=== PATIENT | male | born 1965 | race African-American/Black ===

== ENCOUNTER 2016-11-14 09:06 | Inpatient (IN) | payer OTHER ==
[2016-11-14 09:42] VITALS: BMI 23.5
--- NOTE | 2016-11-14 18:10 | HP ---
CIWA Score - CIWA Score Nausea/Vomitin-Mild Nausea/No Vomiting Muscle Tremors: 4-Moderate,w/Arms Extend Anxiety: 4-Mod. Anxious/Guarded Agitation: 4-Moderately Restless Paroxysmal Sweats: 1-Minimal Palms Moist Orientation: 0-Oriented Tacttile Disturbances: 0-None Auditory Disturbances: 0-None Visual Disturbances: 0-None Headache: 1-Very Mild CIWA-Ar Total Score: 15 Admission ROS BHS - HPI Chief Complaint: WITHDRAWAL SX LAST DETOX 2015 [place] Allergies/Adverse Reactions: Allergies Allergy/AdvReac Type Severity Reaction Status Date / Time hydromorphone HCl Allergy Severe Swelling Verified 11/14/16 15:04 [From Dilaudid] sulfamethoxazole Allergy Severe unknown Verified 11/14/16 15:04 [From Bactrim] trimethoprim [From Bactrim] Allergy Severe unknown Verified 11/14/16 15:04 History of Present Illness: 51 YEARS OLD MALE WITH LONG HISTORY OF ALCOHOL NICOTINE DEPENDENCE HAS GERD, SEIZURE, HYPERTENSION AND BIPOLAR II IS ADMITTED TO DETOX Exam Limitations: No Limitations - Ebola screening Have you traveled outside of the country in the last 21 days: No Have you had contact with anyone from an Ebola affected area: No Have you been sick,other than usual withdrawal symptoms: No Do you have a fever: No - Review of Systems Constitutional: Chills, Changes in sleep, Weight Stable EENT: reports: No Symptoms Reported Respiratory: reports: No Symptoms reported Cardiac: reports: No Symptoms Reported GI: reports: Nausea, Poor Fluid Intake, Indigestion, Abdominal cramping : reports: No Symptoms Reported Musculoskeletal: reports: No Symptoms Reported Integumentary: reports: No Symptoms Reported Neuro: reports: Seizure (2015 ALCOHOL RELATED), Tremors Endocrine: reports: No Symptoms Reported Hematology: reports: No Symptoms Reported Psychiatric: reports: Judgement Intact, Orientated x3, Depressed Other Systems: Reviewed and Negative Patient History - Patient Medical History Hx Anemia: No Hx Asthma: No Hx Chronic Obstructive Pulmonary Disease (COPD): No Hx Cancer: No Hx Cardiac Disorders: No Hx Congestive Heart Failure: No Hx Hypertension: Yes Hx Hypercholesterolemia: No Hx Pacemaker: No HX Cerebrovascular Accident: No Hx Seizures: Yes (last 1 1/2 ago) Hx Dementia: No Hx Diabetes: No Hx Gastrointestinal Disorders: Yes Hx Liver Disease: No Hx Genitourinary Disorders: No Hx Sexually Transmitted Disorders: No Hx Renal Disease (ESRD): No Hx Thyroid Disease: No Hx Human Immunodeficiency Virus (HIV): No (negative) Hx Hepatitis C: No Hx Depression: No Hx Suicide Attempt: No Hx Bipolar Disorder: Yes Hx Schizophrenia: No - Patient Surgical History Past Surgical History: Yes Hx Neurologic Surgery: No Hx Cataract Extraction: No Hx Cardiac Surgery: No Hx Lung Surgery: No Hx Breast Surgery: No Hx Breast Biopsy: No Hx Abdominal Surgery: No Hx Appendectomy: No Hx Cholecystectomy: No Hx Genitourinary Surgery: No Hx Orthopedic Surgery: Yes (fx, left femur in 1984) Other Surgical History: fx rt leg Anesthesia Reaction: No - PPD History Previous Implant?: Yes Documented Results: Negative w/proof Implanted On Prior R Admission?: Yes Date: 09/22/15 Results: 0mm PPD to be Administered?: Yes - Smoking Cessation Smoking history: Current every day smoker Have you smoked in the past 12 months: Yes Aproximately how many cigarettes per day: 7 Cigars Per Day: 0 Hx Chewing Tobacco Use: No Initiated information on smoking cessation: Yes 'Breaking Loose' booklet given: 11/14/16 - Substance & Tx. History Hx Alcohol Use: Yes Hx Substance Use: No Substance Use Type: Alcohol Hx Substance Use Treatment: Yes (10/2015 DETOX) - Substances Abused Alcohol Route: Oral Frequency: Daily Amount used: yvonne(1 pint)/beer(80 Oz) Age of first use: 15 Date of Last Use: 11/14/16 Family Disease History - Family Disease History Family Disease History: Other: Father (alcoholic ), Mother (alcoholic decesased ) Admission Physical Exam S - Vital Signs Vital Signs: Vital Signs - 24 hr 11/14/16 11/14/16 09:40 17:22 Temperature 97 F L 97.0 F L Pulse Rate 112 H 70 Respiratory 20 18 Rate Blood Pressure 109/77 144/89 - Physical General Appearance: Yes: Appropriately Dressed, Mild Distress, Alcohol on Breath , Thin, Tremorous, Irritable, Sweating, Anxious HEENTM: Yes: Hearing grossly Normal, Normal ENT Inspection, Normocephalic, Normal Voice Respiratory: Yes: Chest Non-Tender, Lungs Clear, Normal Breath Sounds, No Respiratory Distress, No Accessory Muscle Use Neck: Yes: Supple, Trachea in good position Breast: Yes: Breasts Symetrical Cardiology: Yes: Regular Rhythm, Regular Rate, S1, S2 Abdominal: Yes: Non Tender, Soft Genitourinary: Yes: Within Normal Limits Back: Yes: Normal Inspection Musculoskeletal: Yes: full range of Motion, Gait Steady, Back pain Extremities: Yes: Normal Inspection, Normal Range of Motion, Non-Tender, Tremors Neurological: Yes: Fully Oriented, Alert, Motor Strength 5/5, Normal Response, Depressed Affect Integumentary: Yes: Warm Lymphatic: Yes: Within Normal Limits - Diagnostic (1) Alcohol dependence with uncomplicated withdrawal Current Visit: Yes Status: Acute (2) GERD (gastroesophageal reflux disease) Current Visit: Yes Status: Chronic Qualifiers: Esophagitis presence: without esophagitis Qualified Code(s): K21.9 - Gastro-esophageal reflux disease without esophagitis (3) Hypertension Current Visit: Yes Status: Chronic Qualifiers: Hypertension type: essential hypertension Qualified Code(s): I10 - Essential (primary) hypertension (4) Nicotine dependence Current Visit: Yes Status: Acute Qualifiers: Nicotine product type: cigarettes Substance use status: in withdrawal Qualified Code(s): F17.213 - Nicotine dependence, cigarettes, with withdrawal (5) Bipolar II disorder Current Visit: Yes Status: Suspected (6) Seizure disorder Current Visit: No Status: Chronic Comment: pt is on keppra PATIENT REPORTS AVERAGE 3-4 SEIZURE PER MONTH X 3 MONTHS, LAST NEUROLOGY VISITED "LONG TIME AGO", INCREASE HS KEPPRA TO 1000 MG, HEALTH TEACHING ON COMPLIANCE WITH NEURONTIN 300 MG TID Cleared for Admission [facility] - Detox or Rehab [facility] Level of Care: Medically Managed Detox Regimen/Protocol: Librium S Breath Alcohol Content Breath Alcohol Content: 0.037 Urine Drug Screen - Results Drug Screen Negative: Yes
[2016-11-14] MEDS ORDERED: hydrOXYzine PAMOATE 50 MG CAPSULE (FP) PO PRN (18:15)
[2016-11-14] MEDS ORDERED: LOPERAMIDE HCL 2 MG CAPSULE PO PRN (18:15)
[2016-11-14] MEDS ORDERED: MAGNESIUM HYDROX 2400MG/30ML ORAL SUSPENSION 30 ML CUP PO PRN (18:15)
[2016-11-14] MEDS ORDERED: MENTHOL/PHENOL 1 EACH UD MM PRN (18:15)
[2016-11-14] MEDS ORDERED: MAGNESIUM CITRATE 300 ML BOTTLE PO PRN (18:15)
[2016-11-14] MEDS ORDERED: P-EPHED 60MG/TRIPROLIDI 2.5MG TABLET PO PRN (18:15)
[2016-11-14] MEDS ORDERED: guaiFENesin/D-METHORPHAN HB 10 ML UNIT-DOSE CUPS PO PRN (18:15)
[2016-11-14] MEDS ORDERED: ACETAMINOPHEN 325 MG TABLET (FP) PO PRN (18:15)
[2016-11-14] MEDS ORDERED: NICOTINE 14 MG/24 HOURS TOPICAL PATCH TD PRN (18:15)
[2016-11-14] MEDS ORDERED: chlordiazePOXIDE HCL 25 MG CAPSULE PO PRN (18:15)
[2016-11-14] MEDS ORDERED: diphenhydrAMINE HCL 50 MG CAPSULE PO PRN (18:15)
[2016-11-14] MEDS ORDERED: NICOTINE POLACRILEX 2 MG GUM BC PRN (18:15)
[2016-11-14] MEDS ORDERED: MAG HYDROX/AL HYDROX/SIMETH 30 ML UNIT-DOSE CUP PO PRN (18:15)
[2016-11-14] MEDS ORDERED: chlordiazePOXIDE HCL 25 MG CAPSULE PO ONE (19:00)
[2016-11-14] MEDS: THIAMINE HCL 100 MG TABLET (FP) PO SCH (22:05)
[2016-11-14] MEDS: RANITIDINE HCL 150 MG TABLET (FP) PO SCH (22:05)
[2016-11-14] MEDS: chlordiazePOXIDE HCL 25 MG CAPSULE PO SCH (22:05)
[2016-11-14] MEDS: GABAPENTIN 300 MG CAPSULE (FP) PO SCH (22:05)
[2016-11-14] MEDS: levETIRAcetam 500 MG TABLET (FP) PO SCH (22:05)
[2016-11-15] MEDS: chlordiazePOXIDE HCL 25 MG CAPSULE PO SCH ×4 (05:39→22:23)
[2016-11-15] MEDS: GABAPENTIN 300 MG CAPSULE (FP) PO SCH ×3 (05:39→22:23)
--- NOTE | 2016-11-15 09:31 | EKG ---
Test Reason : Blood Pressure : / mmHG Vent. Rate : 070 BPM Atrial Rate : 070 BPM P-R Int : 190 ms QRS Dur : 078 ms QT Int : 380 ms P-R-T Axes : 048 031 034 degrees QTc Int : 410 ms NORMAL SINUS RHYTHM SEPTAL INFARCT , AGE UNDETERMINED ABNORMAL ECG WHEN COMPARED WITH ECG OF 15-AUG-2014 19:48, NO SIGNIFICANT CHANGE WAS FOUND Confirmed by JALEN LAFLEUR MD ([id number]) on 11/15/2016 9:30:44 AM Referred By: Confirmed By:JALEN LAFLEUR MD
[2016-11-15 10:00] LABS: MCH 28.8 pg (25.7-33.7); MCHC 35.1 g/dl (32.0-35.9); MEAN CELL VOLUME 82.1 fl (80-96); MEAN PLT VOLUME 8.1 fl (7.5-11.1); PLATELET COUNT 101 K/MM3 (134-434); RDW 13.9 % (11.9-15.9)
[2016-11-15 10:23] LABS: ALBUMIN 3.5 g/dl (3.4-5.0); ALK PHOS 83 U/L (45-117); ANION GAP 9 (8-16); BILIRUBIN,TOTAL 0.4 mg/dL (0.2-1.0); CALCIUM 9.3 mg/dL (8.5-10.1); CO2 27 mmol/L (21-32); CREATININE 1.1 mg/dL (0.7-1.3); GLUCOSE,RANDOM 122 mg/dL (74-106); SGOT/AST 99 U/L (15-37); SGPT/ALT 77 U/L (12-78); TOT PROT 6.7 g/dl (6.4-8.2)
[2016-11-15] MEDS: levETIRAcetam 500 MG TABLET (FP) PO SCH ×2 (10:23→22:23)
[2016-11-15] MEDS: RAMIPRIL 5 MG CAPSULE (FP) PO SCH (10:23)
[2016-11-15] MEDS: PRENATAL VITAMINS W/ FOLIC ACID TABLET (FP) PO SCH (10:23)
[2016-11-15] MEDS: RANITIDINE HCL 150 MG TABLET (FP) PO SCH ×2 (10:23→22:23)
--- NOTE | 2016-11-15 11:19 | PN ---
S CIWA - CIWA Score Nausea/Vomitin Muscle Tremors: 4-Moderate,w/Arms Extend Anxiety: 2 Agitation: 2 Paroxysmal Sweats: 3 Orientation: 0-Oriented Tacttile Disturbances: 0-None Auditory Disturbances: 2-Mild Harshness/Frighten Visual Disturbances: 0-None Headache: 3-Moderate CIWA-Ar Total Score: 19 S Progress Note (SOAP) Subjective: Interrupted sleep, Diarrhea, Tremors, Diarrhea, H/A, Sweating. Objective: PT. A & O X 3. NO ACUTE DISTRESS. PT. DENIES CHEST PAIN. 11/15/16 11:17 Vital Signs Temperature 98.1 F 11/15/16 10:30 Pulse Rate 68 11/15/16 10:30 Respiratory Rate 18 11/15/16 10:30 Blood Pressure 156/101 11/15/16 10:30 O2 Sat by Pulse Oximetry (%) Laboratory Tests 11/15/16 11/15/16 06:30 06:30 WBC 4.0 RBC 4.65 Hgb 13.4 Hct 38.2 MCV 82.1 MCH 28.8 MCHC 35.1 RDW 13.9 D Plt Count 101 L MPV 8.1 Sodium 139 Potassium 3.9 Chloride 103 Carbon Dioxide 27 Anion Gap 9 BUN 11 Creatinine 1.1 Creat Clearance w eGFR > 60 Random Glucose 122 H Calcium 9.3 Total Bilirubin 0.4 D AST 99 H D ALT 77 D Alkaline Phosphatase 83 Total Protein 6.7 Albumin 3.5 LABS NOTED. SEROLOGY LABS PENDING. 11/15/16 11:23 11/15/16 11:23 Assessment: 11/15/16 11:19 WITHDRAWAL SYMPTOMS. Plan: CONTINUE DETOX. REPEAT AST ON 11/17/2016 FOR ELEVATED ADMISSION VALUE. CONTINUE TO MONITOR BP.
--- NOTE | 2016-11-15 11:40 | CONSULT ---
[facility] Psychiatric Consult - Data Date of interview: 11/15/16 Admission source: [facility] Identifying data: Readmission to [facility] for this 51 y/o AA male seeking detox treatment on for alcohol dependence.Patient is single,a father of two,domiciled (lives with his sister),unemployed and supported on food stamps. Substance Abuse History: Patient admits to abusing alcohol since age 15 (drinks beer + yvonne 1/2 pint daily as of 11/13/16).Smokes a maximum of seven cigarettes daily. Medical History: Hypertension,seizure disorder (on levetiracetam),GERD and a history of fracture of left femur (1984). Psychiatric History: Patient admits to one psychiatric hospitalization in his lifetime.It was at [facility] in 2016.Diagnosed with Bipolar Disorder.Ms Bullard reports past treatment with seroquel and " something else ".Not able to recall names of other medications.He states that he has been lost to follow up since his discharge from [facility] in 2015.It appears that the patient has relied on his primary care physician for refills of seroquel 200 mg/ hs + sertraline 100 mg/day (as evidenced by pharmacy claims of 11/12/16 + respectively at [facility] # [id number]).Mr Bullard requests continuation of this combination in this current regimen.No history of suicide attempts. Physical/Sexual Abuse/Trauma History: Patient denies. Additional Comment: Drug Screen : negative. Mental Status Exam - Mental Status Exam Alert and Oriented to: Time, Place, Person Cognitive Function: Good Patient Appearance: Well Groomed Mood: Withdrawn, Apprehensive Affect: Mood Congruent, Constricted Patient Behavior: Fatigued, Appropriate, Cooperative Speech Pattern: Clear Voice Loudness: Normal Thought Process: Goal Oriented Thought Disorder: Not Present Hallucinations: Denies Suicidal Ideation: Denies Homicidal Ideation: Denies Insight/Judgement: Poor Sleep: Poorly, Difficulty falling asleep Appetite: Good Muscle strength/Tone: Normal Gait/Station: Normal Psychiatric Findings - Problem List ([place] 1, 2,3) (1) Alcohol dependence with uncomplicated withdrawal Current Visit: Yes Status: Acute (2) Nicotine dependence Current Visit: Yes Status: Acute Qualifiers: Nicotine product type: cigarettes Substance use status: in withdrawal Qualified Code(s): F17.213 - Nicotine dependence, cigarettes, with withdrawal (3) Bipolar II disorder Current Visit: Yes Status: Chronic (4) GERD (gastroesophageal reflux disease) Current Visit: Yes Status: Chronic Qualifiers: Esophagitis presence: without esophagitis Qualified Code(s): K21.9 - Gastro-esophageal reflux disease without esophagitis (5) Hypertension Current Visit: Yes Status: Chronic Qualifiers: Hypertension type: essential hypertension Qualified Code(s): I10 - Essential (primary) hypertension (6) Seizure disorder Current Visit: Yes Status: Chronic Comment: pt is on keppra PATIENT REPORTS AVERAGE 3-4 SEIZURE PER MONTH X 3 MONTHS, LAST NEUROLOGY VISITED "LONG TIME AGO", INCREASE HS KEPPRA TO 1000 MG, HEALTH TEACHING ON COMPLIANCE WITH NEURONTIN 300 MG TID (7) Insomnia Current Visit: Yes Status: Acute - Initial Treatment Plan Initial Treatment Plan: Previous records are revisited.Recent pharmacy claims reviewed.[facility] report is appreciated.Detoxification in progress.Medications : seroquel 100 mg po hs + zoloft 100 mg po daily.Ordered.Side effects/benefits discussed with the patient.He is made aware of risk of suicidal ideation/sexual dysfunction from sertraline and metabolic syndrome,oversedation/falls, orthostasis,abnormal involuntary movements (dystonias,dyskinesias,akathisia, akinesia),neuroleptic malignant syndrome from use of seroquel.Patient reports good tolerability to these drugs.Seizures precautions.Monitor clinical course.NO scripts needed at discharge.
[2016-11-15 14:26] LABS: HIV 1 & 2 AB NEGATIVE; HIV 1 AGp24 NEGATIVE
[2016-11-15] MEDS: THIAMINE HCL 100 MG TABLET (FP) PO SCH (22:23)
[2016-11-15] MEDS: QUEtiapine FUMARATE 100 MG TABLET (FP) PO SCH (22:23)
[2016-11-16] MEDS: GABAPENTIN 300 MG CAPSULE (FP) PO SCH ×3 (05:46→22:17)
[2016-11-16] MEDS: chlordiazePOXIDE HCL 25 MG CAPSULE PO SCH ×3 (05:46→17:21)
[2016-11-16] MEDS: SERTRALINE HCL 50 MG TABLET (FP) PO SCH (10:23)
[2016-11-16] MEDS: RAMIPRIL 5 MG CAPSULE (FP) PO SCH (10:24)
[2016-11-16] MEDS: RANITIDINE HCL 150 MG TABLET (FP) PO SCH ×2 (10:24→22:17)
[2016-11-16] MEDS: PRENATAL VITAMINS W/ FOLIC ACID TABLET (FP) PO SCH (10:24)
[2016-11-16] MEDS: levETIRAcetam 500 MG TABLET (FP) PO SCH ×2 (10:25→22:17)
--- NOTE | 2016-11-16 13:23 | PN ---
S CIWA - CIWA Score Nausea/Vomitin Muscle Tremors: 2 Anxiety: 2 Agitation: 3 Paroxysmal Sweats: 3 Orientation: 2-Disoriented Date<2 days Tacttile Disturbances: 1-Very Mild Itch/Numbness Auditory Disturbances: 0-None Visual Disturbances: 0-None Headache: 3-Moderate CIWA-Ar Total Score: 19 BHS Progress Note (SOAP) Subjective: Body Aches, Tremors, H/A, Diarrhea, Interrupted Sleep, Sweating, Stomach Cramping, Nausea. Objective: PT. A & O X 2 (DISORIENTED ABOUT DAY / DATE). NO ACUTE DISTRESS. PT. DENIES CHEST PAIN. 11/16/16 13:20 Vital Signs Temperature 97.3 F L 11/16/16 13:17 Pulse Rate 79 11/16/16 13:17 Respiratory Rate 18 11/16/16 13:17 Blood Pressure 118/83 11/16/16 13:17 O2 Sat by Pulse Oximetry (%) Laboratory Tests 11/15/16 11/15/16 11/15/16 06:30 06:30 06:30 WBC 4.0 RBC 4.65 Hgb 13.4 Hct 38.2 MCV 82.1 MCH 28.8 MCHC 35.1 RDW 13.9 D Plt Count 101 L MPV 8.1 Sodium 139 Potassium 3.9 Chloride 103 Carbon Dioxide 27 Anion Gap 9 BUN 11 Creatinine 1.1 Creat Clearance w eGFR > 60 Random Glucose 122 H Calcium 9.3 Total Bilirubin 0.4 D AST 99 H D ALT 77 D Alkaline Phosphatase 83 Total Protein 6.7 Albumin 3.5 RPR Titer HIV 1&2 Antibody Screen Negative HIV P24 Antigen Negative 11/15/16 06:30 WBC RBC Hgb Hct MCV MCH MCHC RDW Plt Count MPV Sodium Potassium Chloride Carbon Dioxide Anion Gap BUN Creatinine Creat Clearance w eGFR Random Glucose Calcium Total Bilirubin AST ALT Alkaline Phosphatase Total Protein Albumin RPR Titer Nonreactive HIV 1&2 Antibody Screen HIV P24 Antigen LABS NOTED. 11/16/16 13:25 Assessment: 11/16/16 13:21 WITHDRAWAL SYMPTOMS. Plan: CONTINUE DETOX. CONTINUE TO MONITOR BP.
[2016-11-16] MEDS ORDERED: ONDANSETRON *ODT* 4 MG TABLET SL PRN (13:26)
[2016-11-16] MEDS: THIAMINE HCL 100 MG TABLET (FP) PO SCH (22:17)
[2016-11-16] MEDS: chlordiazePOXIDE 5 MG CAPSULE PO SCH (22:17)
[2016-11-16] MEDS: QUEtiapine FUMARATE 100 MG TABLET (FP) PO SCH (22:17)
[2016-11-17] MEDS: chlordiazePOXIDE 5 MG CAPSULE PO SCH ×3 (06:03→17:47)
[2016-11-17] MEDS: GABAPENTIN 300 MG CAPSULE (FP) PO SCH ×3 (07:37→22:35)
[2016-11-17 10:10] LABS: URINE APPEARANCE CLEAR; URINE BILIRUBIN NEGATIVE (NEGATIVE); URINE BLOOD NEGATIVE (NEGATIVE); URINE COLOR LTYELLOW; URINE GLUCOSE (UA) 1+ (NEGATIVE); URINE KETONE NEGATIVE (NEGATIVE); URINE LEUK ESTERASE NEGATIVE (NEGATIVE); URINE NITRITE NEGATIVE (NEGATIVE); URINE PROTEIN NEGATIVE (NEGATIVE); URINE UROBILINOGEN NEGATIVE mg/dL (0.2-1.0)
[2016-11-17] MEDS: levETIRAcetam 500 MG TABLET (FP) PO SCH ×2 (10:24→22:35)
[2016-11-17] MEDS: RAMIPRIL 5 MG CAPSULE (FP) PO SCH (10:24)
[2016-11-17] MEDS: SERTRALINE HCL 50 MG TABLET (FP) PO SCH (10:24)
[2016-11-17] MEDS: PRENATAL VITAMINS W/ FOLIC ACID TABLET (FP) PO SCH (10:24)
[2016-11-17] MEDS: RANITIDINE HCL 150 MG TABLET (FP) PO SCH ×2 (10:24→22:35)
--- NOTE | 2016-11-17 15:33 | PN ---
[facility] Progress Note (SOAP) Subjective: Tremor, chills, diarrhea, anxious Objective: 11/17/16 15:32 Last Vital Signs Temp Pulse Resp BP Pulse Ox 97.3 F L 80 18 112/82 11/17/16 13:06 11/17/16 13:06 11/17/16 13:06 11/17/16 13:06 Laboratory Tests 11/14/16 11/15/16 11/15/16 06:30 06:30 06:30 WBC 4.0 RBC 4.65 Hgb 13.4 Hct 38.2 MCV 82.1 MCH 28.8 MCHC 35.1 RDW 13.9 D Plt Count 101 L MPV 8.1 Sodium Potassium Chloride Carbon Dioxide Anion Gap BUN Creatinine Creat Clearance w eGFR Random Glucose Calcium Total Bilirubin AST ALT Alkaline Phosphatase Total Protein Albumin Urine Color Urine Appearance Urine pH Ur Specific [place] Urine Protein Urine Glucose (UA) Urine Ketones Urine Blood Urine Nitrite Urine Bilirubin Urine Urobilinogen Ur Leukocyte Esterase RPR Titer Hepatitis C Antibody <0.1 HIV 1&2 Antibody Screen Negative HIV P24 Antigen Negative 11/15/16 11/15/16 11/16/16 06:30 06:30 06:16 WBC RBC Hgb Hct MCV MCH MCHC RDW Plt Count MPV Sodium 139 Potassium 3.9 Chloride 103 Carbon Dioxide 27 Anion Gap 9 BUN 11 Creatinine 1.1 Creat Clearance w eGFR > 60 Random Glucose 122 H Calcium 9.3 Total Bilirubin 0.4 D AST 99 H D ALT 77 D Alkaline Phosphatase 83 Total Protein 6.7 Albumin 3.5 Urine Color Ltyellow Urine Appearance Clear Urine pH 6.0 Ur Specific [place] 1.015 Urine Protein Negative Urine Glucose (UA) 1+ H Urine Ketones Negative Urine Blood Negative Urine Nitrite Negative Urine Bilirubin Negative Urine Urobilinogen Negative Ur Leukocyte Esterase Negative RPR Titer Nonreactive Hepatitis C Antibody HIV 1&2 Antibody Screen HIV P24 Antigen Labs noted: UA: 1+ glucose Assessment: 11/17/16 15:33 Withdrawal symptoms Noted with glycosuria and hyperglycemia Plan: Continue detox, encouraged to drink lots of water Glycosuria: encouraged to drink lots of water, repeat UA in AM Hyperglycemia: check fingerstick tomorrow morning before breakfast; consider initiating antidiabetic medication if warranted
[2016-11-17] MEDS: THIAMINE HCL 100 MG TABLET (FP) PO SCH (22:35)
[2016-11-17] MEDS: chlordiazePOXIDE HCL 10 MG CAPSULE PO SCH (22:35)
[2016-11-17] MEDS: QUEtiapine FUMARATE 100 MG TABLET (FP) PO SCH (22:35)
[2016-11-18] MEDS: chlordiazePOXIDE HCL 10 MG CAPSULE PO SCH ×2 (07:23→10:27)
[2016-11-18] MEDS: GABAPENTIN 300 MG CAPSULE (FP) PO SCH ×2 (07:24→14:22)
[2016-11-18 09:58] VITALS: PULSE 79
[2016-11-18] MEDS: SERTRALINE HCL 50 MG TABLET (FP) PO SCH (10:28)
[2016-11-18] MEDS: RANITIDINE HCL 150 MG TABLET (FP) PO SCH (10:28)
[2016-11-18] MEDS: PRENATAL VITAMINS W/ FOLIC ACID TABLET (FP) PO SCH (10:28)
[2016-11-18] MEDS: levETIRAcetam 500 MG TABLET (FP) PO SCH (10:28)
[2016-11-18] MEDS: RAMIPRIL 5 MG CAPSULE (FP) PO SCH (10:28)
--- NOTE | 2016-11-18 14:04 | PN ---
Psychiatric Progress Note Vital Signs: Vital Signs Period Temp Pulse Resp BP Sys/Foss Pulse Ox Last 24 Hr 95.8 F-97.7 F 60-79 16-19 123-133/78-85 Date of Session: 11/18/16 Chief Complaint:: " I am hearing voices.I am afraid that I may hurt myself." HPI: Patient was admitted to [address] [place] [address] to address alcohol dependence.Completed detoxification treatment.Mr Bullard was scheduled for discharge today but,in the morning,he presented with complaint of auditory hallucinations + suicidal commands.Patient expresses the feeling that he is " not ready " to return to the community.Fearful of responding to the commands of his hallucinations. ROS: Patient is ambulatory,alert and fully oriented.No somatic complaints.Normal vitals. Current Medications: Active Medications Generic Name Dose Route Start Last Admin Trade Name Freq PRN Reason Stop Dose Admin Acetaminophen 650 mg 11/14/16 18:15 Tylenol - PO Q4H PRN FEVER OR PAIN Al Hydroxide/Mg Hydroxide 30 ml 11/14/16 18:15 Mylanta Oral Suspension - PO Q6H PRN DYSPEPSIA Chlordiazepoxide HCl 10 mg 11/17/16 23:00 11/18/16 10:27 Librium - PO 11/18/16 17:01 10 mg [id number] MELE Administration Diphenhydramine HCl 50 mg 11/14/16 18:15 11/15/16 22:24 Benadryl - PO 50 mg HSMR1 PRN Administration INSOMNIA Ergocalciferol 50,000 unit 11/20/16 10:00 Drisdol - PO We@1000 MELE Eucalyptus/Menthol/Phenol/Sorbitol 1 each 11/14/16 18:15 11/15/16 05:58 Cepastat Lozenge - MM 1 each Q4H PRN Administration SORE THROAT Gabapentin 300 mg 11/14/16 22:00 11/18/16 07:24 Neurontin - PO Not Given TID MELE Guaifenesin 10 ml 11/14/16 18:15 11/15/16 05:58 Robitussin Dm - PO 10 ml Q6H PRN Administration COUGH Hydroxyzine Pamoate 50 mg 11/14/16 18:15 Vistaril - PO Q4H PRN AGITATION Levetiracetam 500 mg 11/15/16 10:00 11/18/16 10:28 Keppra - PO 500 mg DAILY MELE Administration Levetiracetam 1,000 mg 11/14/16 22:00 11/17/16 22:35 Keppra - PO 1,000 mg HS MELE Administration Loperamide HCl 4 mg 11/14/16 18:15 Imodium - PO Q6H PRN DIARRHEA Magnesium Citrate 300 ml 11/14/16 18:15 Citroma - PO Q48H PRN CONSTIPATION Magnesium Hydroxide 30 ml 11/14/16 18:15 Milk Of Magnesia - PO DAILY PRN CONSTIPATION Nicotine 14 mg 11/14/16 18:15 Nicoderm Patch - TD DAILY PRN WITHDRAWAL(CONT SUBST) Nicotine Polacrilex 2 mg 11/14/16 18:15 Nicorette Gum - BC Q2H PRN NICOTINE REPLACEMENT RX Ondansetron HCl 4 mg 11/16/16 13:26 11/16/16 13:59 Zofran Odt - SL 4 mg Q8H PRN Administration NAUSEA AND/OR VOMITING Multivit/Folic Acid/Iron 1 tab 11/15/16 10:00 11/18/16 10:28 Vitamins (Sjr) - PO 1 tab DAILY MELE Administration Pseudoephedrine/Triprolidine 1 combo 11/14/16 18:15 Actifed - PO TID PRN NASAL CONGESTION Quetiapine Fumarate 100 mg 11/15/16 22:00 11/17/16 22:35 Seroquel - PO 100 mg HS MELE Administration Ramipril 10 mg 11/15/16 10:00 11/18/16 10:28 Altace - PO 10 mg DAILY MELE Administration Ranitidine HCl 150 mg 11/14/16 22:00 11/18/16 10:28 Zantac - PO 150 mg BID MELE Administration Sertraline HCl 100 mg 11/16/16 10:00 11/18/16 10:28 Zoloft - PO 100 mg DAILY MELE Administration Thiamine HCl 100 mg 11/14/16 22:00 11/17/16 22:35 Vitamin B1 - PO 100 mg HS MELE Administration Medication(s) Change(s): No changes.Seroquel 200 mg po hs + zoloft 100 mg po daily.Side effects/benefits of both drugs are discussed with the patient.He is in agreement with this regimen. Current Side Effect: No Lab tests ordered: No Lab tests reviewed: Yes Provider note:: Hospital course is reviewed via progress notes.Met with the patient.Mr Bullard states that he had witheld personal information on admission." I usually don't open up to people but I have a good rapport with Nuha,my therapist at the [facility] in [facility].He allowed this television script writer to contact this libertarian at [phone] (written authorization in chart) .Contact established with Nuha.She confirms that the patient has not been covered by a psychiatrist and that he gets his medications from his primary care provider.No reported history of violence.Questionable adherence to medications and chronic alcohol abuse.Therapist also confirms patient's account of one psychiatric hospitalization (2015).Mr Bullard maintains that he is hearing voices blaming him " for being nobody and good for nothing ".States that he is not feeling well or safe to leave this facility." I want to go to a psychiatric hospital." Patient rejects the referrral to [facility].At this point,it is clear that this patient is unpredictable,potentially impulsive and that he cannot be trusted for self-management.Discharge is therefore cancelled.MSE completed.See report.Mr Bullard will be transferred to the psychiatric emergency room at [facility] for appropriate management and safety.Discussed with the Multidisciplinary treatment team.Patient is in agreement with this disposition.Placed on Voluntary status.Case endorsed to Dr Whittington,attending psychiatrist at [facility] (emergency department).Transportation via EMS. Total face to face time:: 120 Mental Status Exam - Mental Status Exam Alert and Oriented to: Time, Place, Person Cognitive Function: Good Patient Appearance: Well Groomed Mood: Sad (feels low and inadequate), Nervous, Withdrawn, Anxious Affect: Mood Congruent, Constricted Patient Behavior: Passive, Guarded Speech Pattern: Clear Voice Loudness: Normal Thought Process: Goal Oriented Thought Disorder: Bizarre Hallucinations: Auditory (hears voices mocking/berating him and urging him to hurt himself) Suicidal Ideation: Denies Homicidal Ideation: Denies Insight/Judgement: Poor Sleep: Well Appetite: Good Muscle strength/Tone: Normal Psychiatric Treatment Plan - Problem List (1) Bipolar II disorder Current Visit: Yes (2) Alcohol dependence with uncomplicated withdrawal Current Visit: Yes (3) Nicotine dependence Current Visit: Yes Qualifiers: Nicotine product type: cigarettes Substance use status: in withdrawal Qualified Code(s): F17.213 - Nicotine dependence, cigarettes, with withdrawal (4) GERD (gastroesophageal reflux disease) Current Visit: Yes Qualifiers: Esophagitis presence: without esophagitis Qualified Code(s): K21.9 - Gastro-esophageal reflux disease without esophagitis (5) Hypertension Current Visit: Yes Qualifiers: Hypertension type: essential hypertension Qualified Code(s): I10 - Essential (primary) hypertension (6) Seizure disorder Current Visit: Yes Comment: pt is on keppra PATIENT REPORTS AVERAGE 3-4 SEIZURE PER MONTH X 3 MONTHS, LAST NEUROLOGY VISITED "LONG TIME AGO", INCREASE HS KEPPRA TO 1000 MG, HEALTH TEACHING ON COMPLIANCE WITH NEURONTIN 300 MG TID (7) Insomnia Current Visit: Yes
[2016-11-18 14:08] VITALS: BP 118/78; TEMP 98.2
--- NOTE | 2016-11-18 14:48 | PN ---
[facility] Progress Note Note: While preparing for Discharge, patient reporting that he has been hearing voices. When asked if he made Psychiatrist aware of this during previous consultation, patient reports that he did not. Patient denies that voices are instructing him to hurt himself or anyone else. Psych Evaluation ordered for patient prior to Discharge for further evaluation. Stephane Camacho [facility] [employer]
--- NOTE | 2016-11-18 15:50 | DS ---
[facility] Detox Discharge Summary Admission Date: 11/14/16 Discharge Date: 11/18/16 - History Present History: Alcohol Dependence Additional Comments: PER RECOMMENDATION OF PSYCHIATRIST DR. Kamari CRUZ MD, PATIENT TO BE TAKEN VIA AMBULANCE TO [facility] FOR FURTHER EVALUATION AFTER HE REPORTED TO DR. CRUZ SUICIDAL IDEATION AND THAT HE HAS BEEN HEARING VOICES. PATIENT DISCHARGED IN STABLE MEDICAL CONDITION. Pertinent Past History: Bipolar disorder, HTN, GERD, History of Seizures. - Physical Exam Results Vital Signs: Vital Signs Temperature 98.2 F 11/18/16 14:07 Pulse Rate 79 11/18/16 14:07 Respiratory Rate 18 11/18/16 14:07 Blood Pressure 118/78 11/18/16 14:07 O2 Sat by Pulse Oximetry (%) Pertinent Admission Physical Exam Findings: WITHDRAWAL SYMPTOMS. Laboratory Tests 11/14/16 11/15/16 11/15/16 06:30 06:30 06:30 WBC 4.0 RBC 4.65 Hgb 13.4 Hct 38.2 MCV 82.1 MCH 28.8 MCHC 35.1 RDW 13.9 D Plt Count 101 L MPV 8.1 Sodium Potassium Chloride Carbon Dioxide Anion Gap BUN Creatinine Creat Clearance w eGFR Random Glucose Calcium Total Bilirubin AST ALT Alkaline Phosphatase Total Protein Albumin Urine Color Urine Appearance Urine pH Ur Specific Rough And Ready Urine Protein Urine Glucose (UA) Urine Ketones Urine Blood Urine Nitrite Urine Bilirubin Urine Urobilinogen Ur Leukocyte Esterase RPR Titer Hepatitis C Antibody <0.1 HIV 1&2 Antibody Screen Negative HIV P24 Antigen Negative 11/15/16 11/15/16 11/16/16 06:30 06:30 06:16 WBC RBC Hgb Hct MCV MCH MCHC RDW Plt Count MPV Sodium 139 Potassium 3.9 Chloride 103 Carbon Dioxide 27 Anion Gap 9 BUN 11 Creatinine 1.1 Creat Clearance w eGFR > 60 Random Glucose 122 H Calcium 9.3 Total Bilirubin 0.4 D AST 99 H D ALT 77 D Alkaline Phosphatase 83 Total Protein 6.7 Albumin 3.5 Urine Color Ltyellow Urine Appearance Clear Urine pH 6.0 Ur Specific Rough [place] Ready 1.015 Urine Protein Negative Urine Glucose (UA) 1+ H Urine Ketones Negative Urine Blood Negative Urine Nitrite Negative Urine Bilirubin Negative Urine Urobilinogen Negative Ur Leukocyte Esterase Negative RPR Titer Nonreactive Hepatitis C Antibody HIV 1&2 Antibody Screen HIV P24 Antigen 11/17/16 06:30 WBC RBC Hgb Hct MCV MCH MCHC RDW Plt Count MPV Sodium Potassium Chloride Carbon Dioxide Anion Gap BUN Creatinine Creat Clearance w eGFR Random Glucose Calcium Total Bilirubin AST 77 H D ALT Alkaline Phosphatase Total Protein Albumin Urine Color Urine Appearance Urine pH Ur Specific Rough And Ready Urine Protein Urine Glucose (UA) Urine Ketones Urine Blood Urine Nitrite Urine Bilirubin Urine Urobilinogen Ur Leukocyte Esterase RPR Titer Hepatitis C Antibody HIV 1&2 Antibody Screen HIV P24 Antigen LABS NOTED. - Treatment Hospital Course: Detox Protocol Followed, Detoxed Safely, Responded well, Discharged Condition Good Patient has Accepted a Rehab Referral to: PT BEING TAKEN TO [facility]. SEE COMMENTS SECTION ABOVE. - Medication Discharge Medications: Ambulatory Orders Levetiracetam [Keppra -] 500 mg PO BID #60 tablet 10/03/15 Ergocalciferol (Vitamin D2) [Vitamin D2] 50,000 unit PO WEEKLY 11/14/16 Folic Acid - 1 mg PO DAILY 11/14/16 Gabapentin [Neurontin -] 300 mg PO Q8H 11/14/16 Ibuprofen 800 mg PO TID PRN 11/14/16 Meloxicam [Mobic] 15 mg PO DAILY PRN 11/14/16 Multivitamins [Tab-A-Vit -] 1 tab PO DAILY 11/14/16 Pantoprazole Sodium [Protonix] 40 mg PO DAILY 11/14/16 Quetiapine Fumarate [Seroquel -] 200 mg PO DAILY 11/14/16 Ramipril [Altace] 10 mg PO DAILY 11/14/16 Sertraline HCl [Zoloft] 100 mg PO DAILY 11/14/16 Thiamine HCl [Vitamin B-1] 100 mg PO DAILY 11/14/16 - Diagnosis (1) Alcohol dependence with uncomplicated withdrawal Current Visit: Yes Status: Acute (2) Insomnia Current Visit: Yes Status: Acute Qualifiers: Insomnia type: unspecified Qualified Code(s): G47.00 - Insomnia, unspecified (3) Nicotine dependence Current Visit: Yes Status: Chronic Qualifiers: Nicotine product type: cigarettes Substance use status: in withdrawal Qualified Code(s): F17.213 - Nicotine dependence, cigarettes, with withdrawal (4) Bipolar II disorder Current Visit: Yes Status: Chronic (5) GERD (gastroesophageal reflux disease) Current Visit: Yes Status: Chronic Qualifiers: Esophagitis presence: without esophagitis Qualified Code(s): K21.9 - Gastro-esophageal reflux disease without esophagitis (6) Hypertension Current Visit: Yes Status: Chronic Qualifiers: Hypertension type: essential hypertension Qualified Code(s): I10 - Essential (primary) hypertension (7) Seizure disorder Current Visit: Yes Status: Chronic - AMA Did Patient Leave Against Medical Advice: No
[2016-11-18 15:59] LABS: URINE APPEARANCE CLEAR; URINE BILIRUBIN NEGATIVE (NEGATIVE); URINE BLOOD NEGATIVE (NEGATIVE); URINE COLOR LTYELLOW; URINE GLUCOSE (UA) 3+ (NEGATIVE); URINE KETONE NEGATIVE (NEGATIVE); URINE LEUK ESTERASE NEGATIVE (NEGATIVE); URINE NITRITE NEGATIVE (NEGATIVE); URINE PROTEIN NEGATIVE (NEGATIVE); URINE UROBILINOGEN NEGATIVE mg/dL (0.2-1.0)
[2016-11-20] MEDS ORDERED: ERGOCALCIFEROL (VITAMIN D2) 50,000 UNIT CAPSULE (FP) PO SCH (10:00)
== END 2016-11-18 16:18 | disposition short-term general hospital (02) | DRG 775 ==
LOC: YASAS 09:06 → Y3N 15:47
PROVIDERS: ADMIT Internal Medicine; ATTEND Internal Medicine
PROC: HZ2ZZZZ Detoxification Services for Substance Abuse Treatment (ICD-10-PCS; principal; 2016-11-18)
DX: F10.230 Alcohol dependence with withdrawal, uncomplicated (principal); F17.213 Nicotine dependence, cigarettes, with withdrawal; G47.00 Insomnia, unspecified; I10 Essential (primary) hypertension; K21.9 Gastro-esophageal reflux disease without esophagitis; G40.909 Epilepsy, unspecified, not intractable, without status epilepticus
CPT/HCPCS: 36415; 80053; 81003; 84450; 85027; 86593; 86803; 87389; 93005; 93010

== ENCOUNTER 2018-03-06 09:04 | Inpatient (IN) | payer OTHER ==
--- NOTE | 2018-03-06 09:53 | HP ---
CIWA Score - CIWA Score Nausea/Vomitin Muscle Tremors: 2 Anxiety: 2 Agitation: 2 Paroxysmal Sweats: 1-Minimal Palms Moist Orientation: 0-Oriented Tacttile Disturbances: 1-Very Mild Itch/Numbness Auditory Disturbances: 1-Very Mild Visual Disturbances: 1-Very Mild Sensitivity Headache: 2-Mild CIWA-Ar Total Score: 14 CIWA Score Nausea/Vomitin Muscle Tremors: 2 Anxiety: 2 Agitation: 2 Paroxysmal Sweats: 1-Minimal Palms Moist Orientation: 0-Oriented Tacttile Disturbances: 1-Very Mild Itch/Numbness Auditory Disturbances: 1-Very Mild Visual Disturbances: 1-Very Mild Sensitivity Headache: 2-Mild CIWA-Ar Total Score: 14 - Admission Criteria Patient presents the following: CIWA greater than 12 Admission Criteria Met: Admission criteria met Admission ROS S - [facility] Chief Complaint: i need help to stop drinking alcohol Allergies/Adverse Reactions: Allergies Allergy/AdvReac Type Severity Reaction Status Date / Time hydromorphone HCl Allergy Severe Swelling Verified 03/06/18 09:38 [From Dilaudid] sulfamethoxazole Allergy Severe Hives Verified 03/06/18 09:38 [From Bactrim] trimethoprim [From Bactrim] Allergy Severe Hives Verified 03/06/18 09:38 History of Present Illness: This 52 years old male with alcohol dependence with extensive history since age of [age] years old,multiple admissions for detox but keep relapsing, last detox [facility] 11/14/17 to 11/18/17 seizure last 2015 blackout history of hypertension,type 2 dm,gerd non compliance with medications,last taking 6 months ago bipolar disorder nicotine dependence longest period of sobriety 1 year Exam Limitations: No Limitations - Ebola screening Have you traveled outside of the country in the last 21 days: No Have you had contact with anyone from an Ebola affected area: No Do you have a fever: No - Review of Systems Constitutional: Loss of Appetite, Malaise, Night Sweats, Changes in sleep, Weakness EENT: reports: Nose Congestion Respiratory: reports: No Symptoms reported Cardiac: reports: Palpitations GI: reports: Nausea, Poor Appetite, Indigestion, Abdominal cramping : reports: No Symptoms Reported Integumentary: reports: Dryness Neuro: reports: Tremors Hematology: reports: No Symptoms Reported Psychiatric: reports: No Sypmtoms Reported, Judgement Intact, Mood/Affect Appropiate, Orientated x3, Anxious (biploar disorder), Depressed Patient History - Patient Medical History Hx Anemia: No Hx Asthma: No Hx Chronic Obstructive Pulmonary Disease (COPD): No Hx Cancer: No Hx Cardiac Disorders: No Hx Congestive Heart Failure: No Hx Hypertension: Yes (non compliance last medication 6 months ago) Hx Hypercholesterolemia: No Hx Pacemaker: No HX Cerebrovascular Accident: No Hx Seizures: Yes (last 2015,non compliance) Hx Dementia: No Hx Diabetes: No Hx Gastrointestinal Disorders: Yes (no med for 6 months) Hx Liver Disease: No Hx Genitourinary Disorders: No Hx Sexually Transmitted Disorders: No Hx Renal Disease (ESRD): No Hx Thyroid Disease: No Hx Human Immunodeficiency Virus (HIV): No (negative last 2016) Hx Hepatitis C: No Hx Depression: No Hx Suicide Attempt: No Hx Bipolar Disorder: Yes Hx Schizophrenia: No Other Medical History: no suicidal,no homicidal - Patient Surgical History Past Surgical History: Yes Hx Neurologic Surgery: No Hx Cataract Extraction: No Hx Cardiac Surgery: No Hx Lung Surgery: No Hx Breast Surgery: No Hx Breast Biopsy: No Hx Abdominal Surgery: No Hx Appendectomy: No Hx Cholecystectomy: No Hx Genitourinary Surgery: No Hx Section: No Hx Orthopedic Surgery: Yes (fx, left femur in 1984) Other Surgical History: fx rt leg at age of 14 years Anesthesia Reaction: No - PPD History Previous Implant?: Yes Documented Results: Negative w/o proof Implanted On Prior [facility] Admission?: Yes Date: 11/16/16 Results: 0mm PPD to be Administered?: Yes - Smoking Cessation Smoking history: Current every day smoker Have you smoked in the past 12 months: Yes Aproximately how many cigarettes per day: 7 Cigars Per Day: 0 Hx Chewing Tobacco Use: No Initiated information on smoking cessation: Yes 'Breaking Loose' booklet given: 03/06/18 - Substance & Tx. History Hx Alcohol Use: Yes Hx Substance Use: No Substance Use Type: Alcohol Hx Substance Use Treatment: Yes ([facility] 11/14/16 to 11/18/16) - Substances Abused Alcohol-rum/beer Route: Oral Frequency: Daily Amount used: 2 pts./2-6 pks. Age of first use: 14 Date of Last Use: 03/06/18 Family Disease History - Family Disease History Family Disease History: Other: Father (alcoholic ,cva), Mother ( alcoholic decesased ,cirrhosis) Admission Physical Exam [facility] - Physical General Appearance: Yes: Moderate Distress, Tremorous, Irritable, Sweating, Anxious HEENTM: Yes: Nasal Congestion Respiratory: Yes: Within Normal Limits, Lungs Clear, Normal Breath Sounds Neck: Yes: Within Normal Limits, Supple, Trachea in good position Breast: Yes: Within Normal Limits Cardiology: Yes: Within Normal Limits, Regular Rhythm, Regular Rate, S1, S2 Abdominal: Yes: Within Normal Limits, Normal Bowel Sounds, Non Tender, Flat, Soft Genitourinary: Yes: Within Normal Limits Musculoskeletal: Yes: Back pain, Muscle Pain Extremities: Yes: Within Normal Limits, Normal Range of Motion, Tremors, Other ( s/p surgery for fx of left femur in 1984 fx of right leg) 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, Fully Oriented, Alert, Motor Strength 5/5 Integumentary: Yes: Dry Lymphatic: Yes: Within Normal Limits - Diagnostic (1) Alcohol dependence with uncomplicated withdrawal Status: Acute (2) Alcohol dependence with uncomplicated intoxication Status: Acute (3) Essential hypertension Status: Acute (4) DM2 (diabetes mellitus, type 2) Status: Acute (5) Seizure Status: Acute (6) Syncope Status: Acute (7) Bipolar disorder Status: Acute (8) Nicotine dependence Status: Acute Qualifiers: Nicotine product type: cigarettes Substance use status: in withdrawal Qualified Code(s): F17.213 - Nicotine dependence, cigarettes, with withdrawal (9) Left femoral shaft fracture Status: Acute (10) Hx of fracture of leg Status: Acute Cleared for Admission [facility] - Detox or Rehab [facility] Level of Care: Medically Managed Detox Regimen/Protocol: Librium [facility] Breath Alcohol Content Breath Alcohol Content: 0.037
[2018-03-06] MEDS ORDERED: guaiFENesin/D-METHORPHAN HB 10 ML UNIT-DOSE CUPS PO PRN (10:08)
[2018-03-06] MEDS ORDERED: MAG HYDROX/AL HYDROX/SIMETH 30 ML UNIT-DOSE CUP PO PRN (10:08)
[2018-03-06] MEDS ORDERED: MENTHOL/PHENOL 1 EACH UD MM PRN (10:08)
[2018-03-06] MEDS ORDERED: P-EPHED 60MG/TRIPROLIDI 2.5MG TABLET PO PRN (10:08)
[2018-03-06] MEDS ORDERED: MAGNESIUM CITRATE 300 ML BOTTLE PO PRN (10:08)
[2018-03-06] MEDS ORDERED: IBUPROFEN 400 MG TABLET (FP) PO PRN (10:08)
[2018-03-06] MEDS ORDERED: chlordiazePOXIDE HCL 25 MG CAPSULE PO PRN (10:08)
[2018-03-06] MEDS ORDERED: ACETAMINOPHEN 325 MG TABLET (FP) PO PRN (10:08)
[2018-03-06] MEDS ORDERED: MAGNESIUM HYDROX 2400MG/30ML ORAL SUSPENSION 30 ML CUP PO PRN (10:08)
[2018-03-06] MEDS ORDERED: LOPERAMIDE HCL 2 MG CAPSULE PO PRN (10:08)
[2018-03-06 10:11] VITALS: BMI 25.2
[2018-03-06] MEDS ORDERED: cloNIDine HCL 0.1 MG TABLET PO ONE (10:30)
[2018-03-06] MEDS ORDERED: RAMIPRIL 5 MG CAPSULE (FP) PO SCH (10:45)
[2018-03-06] MEDS: chlordiazePOXIDE HCL 25 MG CAPSULE PO SCH ×2 (11:47→17:42)
--- NOTE | 2018-03-06 14:09 | CONSULT ---
[facility] Psychiatric Consult - Data Date of interview: 03/06/18 Admission source: [facility] Identifying data: This is one of multiple admissions to [facility] for this 52 y/ o AA male seeking detoxification treatment on for alcohol dependence. Patient is single,a father of two, domiciled (lives with his sister), unemployed and supported on food stamps. Substance Abuse History: Patient admits to abusing alcohol (yvonne + beer) on a daily basis. Onset of abuse dates back to early adolescence. details in current [facility] report : Smoking history: Current every day smoker. Have you smoked in the past 12 months: Yes. Aproximately how many cigarettes per day: 7. Cigars Per Day: 0. Hx Chewing Tobacco Use: No. Initiated information on smoking cessation : Yes. 'Breaking Loose' booklet given: 03/06/18. - Substance & Tx. History. Hx Alcohol Use: Yes. Hx Substance Use: No. Substance Use Type: Alcohol. Hx Substance Use Treatment: Yes ([facility] 11/14/16 to 11/18/16) Medical History: Diabetes mellitus, GERD, seizure disorder, hypertension and a history of orthosurgery (fracture of left femur) in 1984. Psychiatric History: History of one psychiatric hospitalization ([facility]) in 2016. Patient reports that he has been diagnosed with Bipolar Disorder. Ms Bullard admits to past treatment with seroquel. Lost to follow up since 2016. Gets refills of seroquel + sertraline from his primary care physician. No history of suicide attempts. Physical/Sexual Abuse/Trauma History: Patient denies. Additional Comment: No toxicology available. Mental Status Exam - Mental Status Exam Alert and Oriented to: Time, Place, Person Cognitive Function: Good Patient Appearance: Well Groomed Mood: Nervous, Withdrawn, Anxious Affect: Mood Congruent, Constricted Patient Behavior: Fatigued, Cooperative Speech Pattern: Clear, Appropriate Voice Loudness: Normal Thought Process: Intact, Goal Oriented Thought Disorder: Not Present Hallucinations: Denies Suicidal Ideation: Denies Homicidal Ideation: Denies Insight/Judgement: Poor Sleep: Poorly, Difficulty falling asleep Appetite: Good Muscle strength/Tone: Normal Gait/Station: Normal Psychiatric Findings - Problem List (Wright 1, 2,3) (1) Alcohol dependence with uncomplicated withdrawal Current Visit: Yes Status: Acute (2) Nicotine dependence Current Visit: Yes Status: Acute Qualifiers: Nicotine product type: cigarettes Substance use status: in withdrawal Qualified Code(s): F17.213 - Nicotine dependence, cigarettes, with withdrawal (3) Drug-induced mood disorder Current Visit: Yes Status: Acute (4) Insomnia Current Visit: Yes Status: Acute Qualifiers: Insomnia type: unspecified Qualified Code(s): G47.00 - Insomnia, unspecified - Initial Treatment Plan Initial Treatment Plan: Psychoeducation. AA meetings recommended to the patient. Sleep hygiene. Detoxification in progress. Will resume seroquel 100 mg po hs. Side effects/benefits discussed with patient. Mr Bullard declares that he understands information and he agrees to follow this plan of care. Psychotherapy (supportive, group, individual). Ressources for relapse prevention (medication-assisted : acamprosate, naltrexone in addition to psychosocial support) are explained to the patient. Has verbalized his preference for the option of rehabilitation upon completion of detoxification treatment. Observation.
--- NOTE | 2018-03-06 17:48 | DS ---
[facility] Detox Discharge Summary Admission Date: 03/06/18 Discharge Date: 03/06/18 (d/w pt the risks of leaving AMA and risk for relapse) - History Present History: Alcohol Dependence - Physical Exam Results Vital Signs: Vital Signs Temperature 96.6 F L 03/06/18 13:30 Pulse Rate 101 H 03/06/18 16:15 Respiratory Rate 18 03/06/18 16:15 Blood Pressure 134/88 03/06/18 13:30 O2 Sat by Pulse Oximetry (%) Pertinent Admission Physical Exam Findings: Pt was admitted earlier today. Now wants to leave AMA- no clear reason given- states one of brothers is not "OK". d/w pt risk of relapse is high- d/w naltexone based treatment- pt states he was given this at rehab earlier this year. - Treatment Patient has Accepted a Rehab Referral to: pt left the same day of admission- pt states not taking any medications - Medication Discharge Medications: Ambulatory Orders levETIRAcetam [Keppra -] 500 mg PO BID #60 tablet 10/03/15 Pantoprazole Sodium [Protonix] 40 mg PO DAILY 11/14/16 Quetiapine Fumarate [Seroquel -] 200 mg PO HS 11/14/16 Ramipril [Altace] 10 mg PO DAILY 11/14/16 Sertraline HCl [Zoloft] 100 mg PO DAILY 11/14/16 - Diagnosis (1) Alcohol dependence with uncomplicated intoxication Current Visit: Yes Status: Acute (2) Alcohol dependence with uncomplicated withdrawal Current Visit: Yes Status: Acute - AMA Did Patient Leave Against Medical Advice: Yes
[2018-03-06 18:28] VITALS: BP 122/77; PULSE 84; TEMP 98.5
[2018-03-06] MEDS ORDERED: THIAMINE HCL 100 MG TABLET (FP) PO SCH (22:00)
[2018-03-06] MEDS ORDERED: QUEtiapine FUMARATE 100 MG TABLET (FP) PO SCH (22:00)
[2018-03-06] MEDS ORDERED: levETIRAcetam 500 MG TABLET (FP) PO SCH (22:00)
[2018-03-06] MEDS ORDERED: MELATONIN 5 MG TABLETS PO PRN (22:00)
[2018-03-07] MEDS ORDERED: PRENATAL VITAMINS W/ FOLIC ACID TABLET (FP) PO SCH (10:00)
[2018-03-07] MEDS ORDERED: PANTOPRAZOLE 40 MG TABLET (FP) PO SCH (10:00)
[2018-03-07] MEDS ORDERED: chlordiazePOXIDE HCL 25 MG CAPSULE PO SCH (11:00)
--- NOTE | 2018-03-07 12:27 | EKG ---
Test Reason : Blood Pressure : / mmHG Vent. Rate : 087 BPM Atrial Rate : 087 BPM P-R Int : 162 ms QRS Dur : 080 ms QT Int : 354 ms P-R-T Axes : 150 143 140 degrees QTc Int : 425 ms SUSPECT ARM LEAD REVERSAL, INTERPRETATION ASSUMES NO REVERSAL UNUSUAL P AXIS, POSSIBLE ECTOPIC ATRIAL RHYTHM RIGHT AXIS DEVIATION ABNORMAL ECG WHEN COMPARED WITH ECG OF 14-NOV-2016 15:47, ECTOPIC ATRIAL RHYTHM HAS REPLACED SINUS RHYTHM NONSPECIFIC ST ABNORMALITY Confirmed by JALEN LAFLEUR MD ([id number]) on 03/07/2018 12:27:44 PM Referred By: Confirmed By:JALEN LAFLEUR MD
[2018-03-08] MEDS ORDERED: chlordiazePOXIDE 5 MG CAPSULE PO SCH (11:00)
[2018-03-09] MEDS ORDERED: chlordiazePOXIDE HCL 10 MG CAPSULE PO SCH (11:00)
== END 2018-03-06 18:12 | disposition left against medical advice (07) | DRG 770 ==
LOC: YASAS 09:04 → Y3N 10:10
PROC: HZ2ZZZZ Detoxification Services for Substance Abuse Treatment (ICD-10-PCS; principal; 2018-03-06)
DX: F10.230 Alcohol dependence with withdrawal, uncomplicated (principal); F17.210 Nicotine dependence, cigarettes, uncomplicated; F19.24 Other psychoactive substance dependence with psychoactive substance-induced mood disorder; F31.9 Bipolar disorder, unspecified; G47.00 Insomnia, unspecified; I10 Essential (primary) hypertension; E11.9 Type 2 diabetes mellitus without complications; K21.9 Gastro-esophageal reflux disease without esophagitis; G40.909 Epilepsy, unspecified, not intractable, without status epilepticus; R55 Syncope and collapse; Z88.2 Allergy status to sulfonamides; Z88.8 Allergy status to other drugs, medicaments and biological substances
CPT/HCPCS: 36415; 82962; 87389; 93005; 93010; J0735

== ENCOUNTER 2018-06-23 08:54 | Inpatient (IN) | payer OTHER ==
[2018-06-23 09:18] VITALS: BMI 23.5
--- NOTE | 2018-06-23 09:33 | HP ---
CIWA Score Nausea/Vomitin-No Nausea/No Vomiting Muscle Tremors: 3 Anxiety: 2 Agitation: 3 Paroxysmal Sweats: 1-Minimal Palms Moist Orientation: 0-Oriented Tacttile Disturbances: 1-Very Mild Itch/Numbness Auditory Disturbances: 1-Very Mild Visual Disturbances: 0-None Headache: 2-Mild CIWA-Ar Total Score: 13 - Admission Criteria [facility] Guidelines: Admission for Medically Managed Detox: Requires at least one of the followin. CIWA greater than 12 2. Seizures within the past 24 hours 3. Delirium tremens within the past 24 hours 4. Hallucinations within the past 24 hours 5. Acute intervention needed for co occurring medical disorder 6. Acute intervention needed for co occurring psychiatric disorder 7. Severe withdrawal that cannot be handled at a lower level of care (continued vomiting, continued diarrhea, abnormal vital signs) requiring intravenous medication and/or fluids 8. Patient presents the following: CIWA greater than 12 Admission Criteria Met: Admission criteria met Admission ROS S - HPI Chief Complaint: i need help to stop drinking Allergies/Adverse Reactions: Allergies Allergy/AdvReac Type Severity Reaction Status Date / Time hydromorphone HCl Allergy Severe Swelling Verified 06/23/18 10:04 [From Dilaudid] sulfamethoxazole Allergy Severe Hives Verified 06/23/18 10:04 [From Bactrim] trimethoprim [From Bactrim] Allergy Severe Hives Verified 06/23/18 10:04 History of Present Illness: this 52 years old male with alcohol dependence,withdrawal symptom,seeking detox, last detox 03/06/18 not completed seizure 03/22 non compliance with medication type 2 dm on diet,htn non compliance, nicotine dependence weight loss bipolar disorder multiple admissions in detox but keep relapsing longest period of sobriety 6 months Exam Limitations: No Limitations - Ebola screening Have you traveled outside of the country in the last 21 days: No Have you had contact with anyone from an Ebola affected area: No Have you been sick,other than usual withdrawal symptoms: No Do you have a fever: No - Review of Systems Constitutional: Loss of Appetite, Malaise, Night Sweats, Weakness, Unintentional Wgt. Loss EENT: reports: Nose Congestion Respiratory: reports: No Symptoms reported Cardiac: reports: No Symptoms Reported GI: reports: Nausea, Vomiting, Abdominal cramping : reports: No Symptoms Reported Musculoskeletal: reports: Back Pain, Muscle Pain Integumentary: reports: Dryness Neuro: reports: Headache, Tremors Endocrine: reports: No Symptoms Reported, Other (fx of right middle toe on 06/16 treated at [facility], has taping of toe) Hematology: reports: No Symptoms Reported Psychiatric: reports: No Sypmtoms Reported, Judgement Intact, Mood/Affect Appropiate, Orientated x3, other (bipolar disorder) Other Systems: Reviewed and Negative Patient History - Patient Medical History Hx Anemia: No Hx Asthma: No Hx Chronic Obstructive Pulmonary Disease (COPD): No Hx Cancer: No Hx Cardiac Disorders: No Hx Congestive Heart Failure: No Hx Hypertension: Yes (non compliance last medication 6 months ago) Hx Hypercholesterolemia: No Hx Pacemaker: No HX Cerebrovascular Accident: No Hx Seizures: Yes (last 03/22 non compliance) Hx Dementia: No Hx Diabetes: Yes (diet controlled) Hx Gastrointestinal Disorders: Yes (no med for 6 months) Hx Liver Disease: No Hx Genitourinary Disorders: No Hx Sexually Transmitted Disorders: No Hx Renal Disease (ESRD): No Hx Thyroid Disease: No Hx Human Immunodeficiency Virus (HIV): No (negative last 2017) Hx Hepatitis C: No Hx Depression: No Hx Suicide Attempt: No Hx Bipolar Disorder: Yes Hx Schizophrenia: No Other Medical History: no suicidal,no homicidal - Patient Surgical History Past Surgical History: Yes Hx Neurologic Surgery: No Hx Cataract Extraction: No Hx Cardiac Surgery: No Hx Lung Surgery: No Hx Breast Surgery: No Hx Breast Biopsy: No Hx Abdominal Surgery: No Hx Appendectomy: No Hx Cholecystectomy: No Hx Genitourinary Surgery: No Hx Section: No Hx Orthopedic Surgery: Yes (fx, left femur in 1984) Other Surgical History: fx rt leg at age of 14 years Anesthesia Reaction: No - PPD History Previous Implant?: Yes Documented Results: Negative w/o proof Implanted On Prior [facility] Admission?: Yes Date: 11/16/16 Results: 0mm PPD to be Administered?: Yes - Smoking Cessation Smoking history: Current every day smoker Have you smoked in the past 12 months: Yes Aproximately how many cigarettes per day: 10 Cigars Per Day: 0 Hx Chewing Tobacco Use: No Initiated information on smoking cessation: Yes 'Breaking Loose' booklet given: 06/23/18 - Substance & Tx. History Hx Alcohol Use: Yes Hx Substance Use: No Substance Use Type: Alcohol Hx Substance Use Treatment: Yes ([facility] 03/22 not completed) - Substances Abused Alcohol Route: Oral Frequency: Daily Amount used: 1pint of bacardi/2 of 40 ozs of beer Age of first use: 14 Date of Last Use: 06/23/18 Family Disease History - Family Disease History Family Disease History: Other: Father (alcoholic ,cva), Mother ( alcoholic decesased ,cirrhosis) Admission Physical Exam [facility] - Vital Signs Vital Signs: Vital Signs - 24 hr 06/23/18 09:06 Temperature 97.1 F L Pulse Rate 76 Respiratory 18 Rate Blood Pressure 152/107 H - Physical General Appearance: Yes: Moderate Distress, Tremorous, Irritable, Sweating, Anxious HEENTM: Yes: Pharynx Normal, Photophobia Respiratory: Yes: Lungs Clear, Normal Breath Sounds, No Respiratory Distress Neck: Yes: Within Normal Limits, Supple, Trachea in good position Breast: Yes: Within Normal Limits Cardiology: Yes: Within Normal Limits, Regular Rhythm, Regular Rate, S1, S2 Abdominal: Yes: Within Normal Limits, Normal Bowel Sounds, Non Tender, Flat, Soft Genitourinary: Yes: Within Normal Limits Back: Yes: Muscle Spasm Musculoskeletal: Yes: Back pain, Muscle Pain 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, Fully Oriented, Alert, Motor Strength 5/5 Integumentary: Yes: Dry Lymphatic: Yes: Within Normal Limits - Diagnostic (1) Alcohol dependence with uncomplicated withdrawal Current Visit: No Status: Acute (2) Alcohol dependence with uncomplicated intoxication Current Visit: No Status: Acute (3) Toe fracture, right Current Visit: Yes Status: Acute (4) DM2 (diabetes mellitus, type 2) Current Visit: No Status: Acute (5) Essential hypertension Current Visit: No Status: Acute (6) Hx of fracture of leg Current Visit: No Status: Acute (7) Left femoral shaft fracture Current Visit: No Status: Acute (8) Nicotine dependence Current Visit: No Status: Acute Qualifiers: Nicotine product type: cigarettes Substance use status: in withdrawal Qualified Code(s): F17.213 - Nicotine dependence, cigarettes, with withdrawal (9) Seizure Current Visit: No Status: Acute (10) Syncope Current Visit: No Status: Acute Cleared for Admission [facility] - Detox or Rehab [facility] Level of Care: Medically Managed Detox Regimen/Protocol: Librium [facility] Breath Alcohol Content Breath Alcohol Content: 0.144 Urine Drug Screen - Results Drug Screen Negative: Yes Inpatient Rehab Admission - Rehab Decision to Admit Inpatient rehab admission?: No
[2018-06-23] MEDS ORDERED: MAG HYDROX/AL HYDROX/SIMETH 30 ML UNIT-DOSE CUP PO PRN (10:00)
[2018-06-23] MEDS ORDERED: MENTHOL/PHENOL 1 EACH UD MM PRN (10:00)
[2018-06-23] MEDS ORDERED: P-EPHED 60MG/TRIPROLIDI 2.5MG TABLET PO PRN (10:00)
[2018-06-23] MEDS ORDERED: ACETAMINOPHEN 325 MG TABLET (FP) PO PRN (10:00)
[2018-06-23] MEDS ORDERED: hydrOXYzine PAMOATE 50 MG CAPSULE (FP) PO PRN (10:00)
[2018-06-23] MEDS ORDERED: guaiFENesin/D-METHORPHAN HB 10 ML UNIT-DOSE CUPS PO PRN (10:00)
[2018-06-23] MEDS ORDERED: chlordiazePOXIDE HCL 25 MG CAPSULE PO PRN (10:00)
[2018-06-23] MEDS ORDERED: MAGNESIUM HYDROX 2400MG/30ML ORAL SUSPENSION 30 ML CUP PO PRN (10:00)
[2018-06-23] MEDS ORDERED: MAGNESIUM CITRATE 300 ML BOTTLE PO PRN (10:00)
[2018-06-23] MEDS ORDERED: LOPERAMIDE HCL 2 MG CAPSULE PO PRN (10:00)
[2018-06-23] MEDS: PRENATAL VITAMINS W/ FOLIC ACID TABLET (FP) PO SCH (12:08)
[2018-06-23] MEDS: RAMIPRIL 5 MG CAPSULE (FP) PO SCH (12:09)
[2018-06-23] MEDS: chlordiazePOXIDE HCL 25 MG CAPSULE PO SCH ×2 (17:24→22:12)
[2018-06-23] MEDS: IBUPROFEN 400 MG TABLET (FP) PO PRN (17:24)
[2018-06-23] MEDS: THIAMINE HCL 100 MG TABLET (FP) PO SCH (22:12)
[2018-06-23] MEDS: MELATONIN 5 MG TABLETS PO PRN (22:12)
[2018-06-23] MEDS: levETIRAcetam 500 MG TABLET (FP) PO SCH (22:12)
[2018-06-24] MEDS: chlordiazePOXIDE HCL 25 MG CAPSULE PO SCH ×4 (05:33→22:07)
[2018-06-24] MEDS: levETIRAcetam 500 MG TABLET (FP) PO SCH ×2 (10:34→22:07)
[2018-06-24] MEDS: RAMIPRIL 5 MG CAPSULE (FP) PO SCH (10:34)
[2018-06-24] MEDS: PRENATAL VITAMINS W/ FOLIC ACID TABLET (FP) PO SCH (10:34)
[2018-06-24] MEDS: IBUPROFEN 400 MG TABLET (FP) PO PRN ×2 (10:38→17:39)
[2018-06-24] MEDS: PANTOPRAZOLE 40 MG TABLET (FP) PO SCH (10:38)
[2018-06-24 11:04] LABS: HEMATOCRIT 38.8 % (35.4-49); MCH 31.2 pg (25.7-33.7); MCHC 36.1 g/dl (32.0-35.9); MEAN CELL VOLUME 86.3 fl (80-96); PLATELET COUNT 162 K/MM3 (134-434); RDW 15.2 % (11.9-15.9); WHITE BLOOD COUNT 4.3 K/mm3 (4.0-10.0)
[2018-06-24 11:12] LABS: ALBUMIN 4.3 g/dl (3.4-5.0); ALK PHOS 78 U/L (45-117); ANION GAP 11 MMOL/L (8-16); BILIRUBIN,TOTAL 0.6 mg/dL (0.2-1); BLOOD UREA NITROGEN 8 mg/dL (7-18); CHLORIDE 103 mmol/L (98-107); CO2 25 mmol/L (21-32); CREATININE 0.8 mg/dL (0.55-1.3); GLUCOSE,RANDOM 92 mg/dL (74-106); POTASSIUM 4.1 mmol/L (3.5-5.1); SGOT/AST 58 U/L (15-37); SGPT/ALT 49 U/L (13-61); SODIUM 138 mmol/L (136-145); TOT PROT 8.2 g/dl (6.4-8.2)
--- NOTE | 2018-06-24 15:15 | PN ---
S CIWA - CIWA Score Nausea/Vomitin-No Nausea/No Vomiting Muscle Tremors: 1-None Visible, but [place] Anxiety: 1-Mildly Anxious Agitation: 1-Slight > Activity Paroxysmal Sweats: No Perspiration Orientation: 0-Oriented Tacttile Disturbances: 0-None Auditory Disturbances: 0-None Visual Disturbances: 0-None Headache: 0-None Present CIWA-Ar Total Score: 3 BHS Progress Note (SOAP) Subjective: pt states doing well with alcohol detox protocol- no complaints today O: Vital Signs - 24 hr 06/23/18 06/23/18 06/23/18 15:30 16:00 16:30 Temperature Pulse Rate 79 77 85 Respiratory Rate Blood Pressure 06/23/18 06/23/18 06/23/18 17:00 17:07 17:30 Temperature 99.7 F H Pulse Rate 88 91 H 88 Respiratory 18 Rate Blood Pressure 154/98 06/23/18 06/23/18 06/23/18 18:00 18:30 19:00 Temperature Pulse Rate 82 80 84 Respiratory Rate Blood Pressure 06/23/18 06/23/18 06/23/18 19:30 20:00 20:30 Temperature Pulse Rate 89 80 84 Respiratory Rate Blood Pressure 06/23/18 06/23/18 06/23/18 21:00 21:30 22:00 Temperature Pulse Rate 74 70 80 Respiratory Rate Blood Pressure 06/23/18 06/23/18 06/23/18 22:30 22:39 23:00 Temperature 98.2 F Pulse Rate 80 80 82 Respiratory 20 20 Rate Blood Pressure 145/94 06/23/18 06/24/18 06/24/18 23:30 00:00 00:30 Temperature Pulse Rate 79 79 80 Respiratory 18 18 18 Rate Blood Pressure 06/24/18 06/24/18 06/24/18 01:00 01:30 02:00 Temperature Pulse Rate 81 80 78 Respiratory 18 18 18 Rate Blood Pressure 06/24/18 06/24/18 06/24/18 02:30 03:00 03:30 Temperature Pulse Rate 78 80 80 Respiratory 18 18 18 Rate Blood Pressure 06/24/18 06/24/18 06/24/18 04:00 04:30 05:00 Temperature Pulse Rate 70 71 65 Respiratory 18 18 18 Rate Blood Pressure 06/24/18 06/24/18 06/24/18 05:30 06:00 06:12 Temperature 98.4 F Pulse Rate 50 L 53 L 50 L Respiratory 18 18 18 Rate Blood Pressure 101/56 L 06/24/18 06/24/18 06/24/18 06:30 09:15 14:03 Temperature 97.5 F L 98.2 F Pulse Rate 55 L 68 69 Respiratory 18 18 18 Rate Blood Pressure 131/87 123/79 Laboratory Tests 06/23/18 06/24/18 06/24/18 10:20 05:34 05:45 WBC 4.3 RBC 4.50 Hgb 14.0 Hct 38.8 MCV 86.3 MCH 31.2 MCHC 36.1 H RDW 15.2 Plt Count 162 D MPV 8.0 Sodium Potassium Chloride Carbon Dioxide Anion Gap BUN Creatinine Creat Clearance w eGFR POC Glucometer 96 127 Random Glucose Calcium Total Bilirubin AST ALT Alkaline Phosphatase Total Protein Albumin RPR Titer 06/24/18 06/24/18 05:45 05:45 WBC RBC Hgb Hct MCV MCH MCHC RDW Plt Count MPV Sodium 138 Potassium 4.1 Chloride 103 Carbon Dioxide 25 Anion Gap 11 BUN 8 Creatinine 0.8 Creat Clearance w eGFR > 60 POC Glucometer Random Glucose 92 Calcium 9.0 Total Bilirubin 0.6 AST 58 H ALT 49 Alkaline Phosphatase 78 Total Protein 8.2 Albumin 4.3 RPR Titer Nonreactive a/p:continue alcohol detox protocol- pt doing well
[2018-06-24] MEDS: THIAMINE HCL 100 MG TABLET (FP) PO SCH (22:07)
[2018-06-24] MEDS: MELATONIN 5 MG TABLETS PO PRN (22:08)
[2018-06-25] MEDS: chlordiazePOXIDE HCL 25 MG CAPSULE PO SCH ×2 (05:30→10:39)
--- NOTE | 2018-06-25 09:11 | CONSULT ---
[facility] Psychiatric Consult - Data Date of interview: 06/25/18 Admission source: [facility] Identifying data: This is a 52 years old male, single father of two, homeless, with no financial support, with psychiatric hospitalization history, history of Bipolar Disorder, with multiple medical problems history, with alcohol, nicotine dependence,is reporting withdrawal symptoms and seeking detox,last detox 03/06/18 not completed Substance Abuse History: Smoking history: Current every day smoker. Have you smoked in the past 12 months: Yes. Aproximately how many cigarettes per day: 10. Cigars Per Day: 0. Hx Chewing Tobacco Use: No. Initiated information on smoking cessation: Yes. 'Breaking Loose' booklet given: 06/23/18. - Substance & Tx. History. Hx Alcohol Use: Yes. Hx Substance Use: No. Substance Use Type : Alcohol. Hx Substance Use Treatment: Yes ([facility] 03/22 not completed). - Substances Abused. Alcohol. Route: Oral. Frequency: Daily. Amount used: 1pint of bacardi/2 of 40 ozs of beer. Age of first use: 14. Date of Last Use: 06/23/18 Medical History: Syncope history, Seizure history, Weight loss history, DM-II, HTN, GERD Psychiatric History: Patient reports history of depression and anxiety, Bipolar Disorder history with the most recent psychiatric asmission on 2017 at [facility]. Patient reports no sucidal, homicidal history, reports taking prior to admission: Seropquel 300mg po qhs. Zoloft 100mg poqd Physical/Sexual Abuse/Trauma History: Denies Additional Comment: Seropquel 300mg po qhs. Zoloft 100mg poqd Mental Status Exam - Mental Status Exam Alert and Oriented to: Person Cognitive Function: Fair Patient Appearance: Well Groomed Mood: Anxious Affect: Mood Congruent Patient Behavior: Cooperative Speech Pattern: Appropriate Voice Loudness: Normal Thought Process: Goal Oriented Thought Disorder: Being Controlled Hallucinations: Denies Suicidal Ideation: Denies Homicidal Ideation: Denies Insight/Judgement: Fair Sleep: Difficulty falling asleep Appetite: Weight loss Muscle strength/Tone: Normal Gait/Station: Normal Additional Comments: Seropquel 300mg po qhs. Zoloft 100mg poqd Psychiatric Findings - Problem List ([place] 1, 2,3) (1) Alcohol dependence with uncomplicated intoxication Current Visit: No Status: Acute (2) Alcohol dependence with uncomplicated withdrawal Current Visit: No Status: Acute (3) DM2 (diabetes mellitus, type 2) Current Visit: No Status: Acute (4) Drug-induced mood disorder Current Visit: No Status: Acute (5) Essential hypertension Current Visit: No Status: Acute (6) Hx of fracture of leg Current Visit: No Status: Acute (7) Nicotine dependence Current Visit: No Status: Acute Qualifiers: Nicotine product type: cigarettes Substance use status: in withdrawal Qualified Code(s): F17.213 - Nicotine dependence, cigarettes, with withdrawal (8) Syncope Current Visit: No Status: Acute (9) Bipolar II disorder Current Visit: No Status: Chronic (10) GERD (gastroesophageal reflux disease) Current Visit: No Status: Chronic Qualifiers: Esophagitis presence: without esophagitis Qualified Code(s): K21.9 - Gastro -esophageal reflux disease without esophagitis (11) Hypertension Current Visit: No Status: Chronic Qualifiers: Hypertension type: essential hypertension Qualified Code(s): I10 - Essential (primary) hypertension (12) Seizure disorder Current Visit: No Status: Chronic Comment: pt is on keppra PATIENT REPORTS AVERAGE 3-4 SEIZURE PER MONTH X 3 MONTHS, LAST NEUROLOGY VISITED "LONG TIME AGO", INCREASE HS KEPPRA TO 1000 MG, HEALTH TEACHING ON COMPLIANCE WITH NEURONTIN 300 MG TID - Initial Treatment Plan Initial Treatment Plan: [place] 300mg po qhs. Zoloft 100mg poqd
[2018-06-25] MEDS: RAMIPRIL 5 MG CAPSULE (FP) PO SCH (10:38)
[2018-06-25] MEDS: levETIRAcetam 500 MG TABLET (FP) PO SCH ×2 (10:38→22:31)
[2018-06-25] MEDS: PRENATAL VITAMINS W/ FOLIC ACID TABLET (FP) PO SCH (10:38)
[2018-06-25] MEDS: PANTOPRAZOLE 40 MG TABLET (FP) PO SCH (10:38)
[2018-06-25] MEDS: SERTRALINE HCL 50 MG TABLET (FP) PO SCH (11:00)
--- NOTE | 2018-06-25 14:49 | PN ---
S CIWA - CIWA Score Nausea/Vomitin-No Nausea/No Vomiting Muscle Tremors: 3 Anxiety: 1-Mildly Anxious Agitation: 0-Normal Activity Paroxysmal Sweats: 3 Orientation: 0-Oriented Tacttile Disturbances: 2-Mild Itch/Numbness/Burn Auditory Disturbances: 0-None Visual Disturbances: 1-Very Mild Sensitivity Headache: 3-Moderate CIWA-Ar Total Score: 13 BHS Progress Note (SOAP) Subjective: Body Aches, Diarrhea, Tremors, Sweating, H/A, Interrupted Sleep. Objective: PATIENT A & O X 3, OBSERVED AMBULATING ON UNIT. IN NO ACUTE DISTRESS. 06/25/18 14:46 Vital Signs Temperature 97.7 F 06/25/18 09:18 Pulse Rate 63 06/25/18 09:18 Respiratory Rate 16 06/25/18 09:18 Blood Pressure 146/88 06/25/18 09:18 O2 Sat by Pulse Oximetry (%) Laboratory Tests 06/23/18 06/24/18 06/24/18 10:20 05:34 05:45 WBC 4.3 RBC 4.50 Hgb 14.0 Hct 38.8 MCV 86.3 MCH 31.2 MCHC 36.1 H RDW 15.2 Plt Count 162 D MPV 8.0 Sodium Potassium Chloride Carbon Dioxide Anion Gap BUN Creatinine Creat Clearance w eGFR POC Glucometer 96 127 Random Glucose Calcium Total Bilirubin AST ALT Alkaline Phosphatase Total Protein Albumin RPR Titer 06/24/18 06/24/18 06/25/18 05:45 05:45 05:33 WBC RBC Hgb Hct MCV MCH MCHC RDW Plt Count MPV Sodium 138 Potassium 4.1 Chloride 103 Carbon Dioxide 25 Anion Gap 11 BUN 8 Creatinine 0.8 Creat Clearance w eGFR > 60 POC Glucometer 123 Random Glucose 92 Calcium 9.0 Total Bilirubin 0.6 AST 58 H ALT 49 Alkaline Phosphatase 78 Total Protein 8.2 Albumin 4.3 RPR Titer Nonreactive LABS NOTED. Assessment: 06/25/18 14:47 WITHDRAWAL SYMPTOMS. Plan: CONTINUE DETOX. PATIENT EDUCATED ABOUT "AAMIR TAPING" METHOD FOR FRACTURED MIDDLE TOE ON RIGHT FOOT. PATIENT VERBALIZED UNDERSTANDING OF INSTRUCTIONS. SUPPLIES ORDERED FOR PATIENT TO CONTINUE TO MAINTAIN HIMSELF ON A DAILY BASIS GOING FORWARD.
[2018-06-25] MEDS: chlordiazePOXIDE 5 MG CAPSULE PO SCH ×2 (17:48→22:31)
[2018-06-25] MEDS: IBUPROFEN 400 MG TABLET (FP) PO PRN (17:51)
[2018-06-25] MEDS ORDERED: QUEtiapine FUMARATE 300 MG TABLET PO SCH (22:00)
[2018-06-25] MEDS: THIAMINE HCL 100 MG TABLET (FP) PO SCH (22:31)
[2018-06-26] MEDS: chlordiazePOXIDE 5 MG CAPSULE PO SCH ×2 (06:03→10:18)
[2018-06-26 08:51] VITALS: BP 149/94; PULSE 51; TEMP 97.9
[2018-06-26] MEDS: PANTOPRAZOLE 40 MG TABLET (FP) PO SCH (10:18)
[2018-06-26] MEDS: SERTRALINE HCL 50 MG TABLET (FP) PO SCH (10:18)
[2018-06-26] MEDS: levETIRAcetam 500 MG TABLET (FP) PO SCH (10:19)
[2018-06-26] MEDS: PRENATAL VITAMINS W/ FOLIC ACID TABLET (FP) PO SCH (10:19)
[2018-06-26] MEDS: RAMIPRIL 5 MG CAPSULE (FP) PO SCH (10:19)
--- NOTE | 2018-06-26 11:41 | DS ---
[facility] Detox Discharge Summary Admission Date: 06/23/18 Discharge Date: 06/26/18 - History Present History: Alcohol Dependence - Physical Exam Results Vital Signs: Vital Signs Temperature 97.9 F 06/26/18 08:50 Pulse Rate 51 L 06/26/18 08:50 Respiratory Rate 18 06/26/18 08:50 Blood Pressure 149/94 06/26/18 08:50 O2 Sat by Pulse Oximetry (%) - Treatment Hospital Course: Detox Protocol Followed, Detoxed Safely, Responded well, Discharged Condition Good, Rehab Referral Accepted - Medication Discharge Medications: Ambulatory Orders levETIRAcetam [Keppra -] 500 mg PO BID #60 tablet 10/03/15 Pantoprazole Sodium [Protonix] 40 mg PO DAILY 11/14/16 Quetiapine Fumarate [Seroquel -] 200 mg PO HS 11/14/16 Ramipril [Altace] 10 mg PO DAILY 11/14/16 Quetiapine Fumarate [Seroquel -] 300 mg PO HS #30 tab 06/25/18 Sertraline HCl [Zoloft] 100 mg PO DAILY #30 tablet 06/25/18 - Diagnosis (1) Toe fracture, right Current Visit: Yes Status: Acute Qualifiers: Encounter type: initial encounter Toe: lesser toe [place]: distal (2) Alcohol dependence with uncomplicated intoxication Current Visit: Yes Status: Chronic (3) Bipolar disorder Current Visit: No Status: Acute (4) DM2 (diabetes mellitus, type 2) Current Visit: Yes Status: Chronic Qualifiers: Diabetes mellitus jail insulin use: unspecified jail insulin use status (5) Drug-induced mood disorder Current Visit: No Status: Acute (6) Essential hypertension Current Visit: No Status: Acute (7) Insomnia Current Visit: Yes Status: Acute Qualifiers: Insomnia type: unspecified Qualified Code(s): G47.00 - Insomnia, unspecified (8) Nicotine dependence Current Visit: Yes Status: Chronic Qualifiers: Nicotine product type: cigarettes Substance use status: uncomplicated Qualified Code(s): F17.210 - Nicotine dependence, cigarettes, uncomplicated (9) Bipolar II disorder Current Visit: No Status: Chronic (10) GERD (gastroesophageal reflux disease) Current Visit: Yes Status: Chronic Qualifiers: Esophagitis presence: without esophagitis Qualified Code(s): K21.9 - Gastro -esophageal reflux disease without esophagitis (11) Hypertension Current Visit: Yes Status: Chronic Qualifiers: Hypertension type: essential hypertension Qualified Code(s): I10 - Essential (primary) hypertension (12) Seizure disorder Current Visit: Yes Status: Chronic - AMA Did Patient Leave Against Medical Advice: No (referred to [facility])
[2018-06-26] MEDS ORDERED: chlordiazePOXIDE HCL 10 MG CAPSULE PO SCH (17:00)
== END 2018-06-26 12:44 | disposition home or self-care (01) | DRG 775 ==
LOC: YASAS 08:54 → Y6N 10:44
PROVIDERS: ADMIT Surgery; ATTEND Surgery
PROC: HZ2ZZZZ Detoxification Services for Substance Abuse Treatment (ICD-10-PCS; principal; 2018-06-23)
DX: F10.230 Alcohol dependence with withdrawal, uncomplicated (principal); F17.210 Nicotine dependence, cigarettes, uncomplicated; F19.24 Other psychoactive substance dependence with psychoactive substance-induced mood disorder; F31.81 Bipolar II disorder; G47.00 Insomnia, unspecified; G40.909 Epilepsy, unspecified, not intractable, without status epilepticus; E11.9 Type 2 diabetes mellitus without complications; Z79.4 Long term (current) use of insulin; I10 Essential (primary) hypertension; K21.9 Gastro-esophageal reflux disease without esophagitis; Z88.2 Allergy status to sulfonamides; R63.4 Abnormal weight loss; Z68.23 Body mass index [BMI] 23.0-23.9, adult; Z88.8 Allergy status to other drugs, medicaments and biological substances; Z87.81 Personal history of (healed) traumatic fracture
CPT/HCPCS: 36415; 80053; 82962; 85027; 86593

== ENCOUNTER 2024-09-22 12:41 | Inpatient (IN) | payer OTHER ==
[2024-09-22 13:37] VITALS: BMI 24.4
[2024-09-22] MEDS ORDERED: BENZOCAINE/MENTHOL (CHLORASEPTIC ) LOZENGE MM PRN (14:00)
[2024-09-22] MEDS ORDERED: IBUPROFEN 600 MG TABLET (FP) PO PRN (14:00)
[2024-09-22] MEDS ORDERED: NICOTINE POLACRILEX 2 MG LOZENGE BC PRN (14:00)
[2024-09-22] MEDS ORDERED: MAG HYDROX/AL HYDROX/SIMETH 30 ML UNIT-DOSE CUP PO PRN (14:00)
[2024-09-22] MEDS ORDERED: NALOXONE HCL 0.4 MG/ML VIAL IVPUSH PRN (14:00)
[2024-09-22] MEDS ORDERED: guaiFENesin 600 MG TABLET.ER (FP) PO PRN (14:00)
[2024-09-22] MEDS ORDERED: IBUPROFEN 400 MG TABLET (FP) PO PRN (14:00)
[2024-09-22] MEDS ORDERED: BENZONATATE 200 MG CAPSULE PO PRN (14:00)
[2024-09-22] MEDS ORDERED: NALOXONE (NARCAN) HCL 4 MG/0.1 ML SPRAY NS PRN (14:00)
[2024-09-22] MEDS ORDERED: LOPERAMIDE HCL 2 MG CAPSULE PO PRN (14:00)
[2024-09-22] MEDS ORDERED: POLYETHYLENE GLYCOL (HEALTHYLAX) 3350 17 GM PACKET PO PRN (14:00)
[2024-09-22] MEDS ORDERED: MAGNESIUM HYDROX 2400MG/30ML ORAL SUSPENSION 30 ML CUP PO PRN (14:00)
[2024-09-22] MEDS ORDERED: ACETAMINOPHEN 325 MG TABLET (FP) PO PRN (14:00)
[2024-09-22] MEDS ORDERED: NICOTINE POLACRILEX 2 MG GUM BUC PRN (14:00)
[2024-09-22] MEDS ORDERED: levETIRAcetam 500 MG TABLET (FP) PO ONE (15:55)
[2024-09-22] MEDS ORDERED: hydrOXYzine PAMOATE 25 MG CAPSULE (FP) PO ONE (15:56)
[2024-09-22] MEDS: levETIRAcetam 500 MG TABLET (FP) PO ONE (15:57)
[2024-09-22] MEDS: hydrOXYzine PAMOATE 50 MG CAPSULE (FP) PO ONE (15:57)
[2024-09-22] MEDS: METHOCARBAMOL 500 MG TABLET PO PRN (17:18)
[2024-09-22] MEDS: THIAMINE 100 MG TABLET PO SCH (22:39)
[2024-09-22] MEDS: MELATONIN 5 MG TABLETS PO SCH (22:39)
[2024-09-22] MEDS: levETIRAcetam 500 MG TABLET (FP) PO SCH (22:39)
[2024-09-23] MEDS: PRENATAL VITAMINS W/ FOLIC ACID TABLET (FP) PO SCH (09:31)
[2024-09-24 06:17] VITALS: RESP 16; TEMP 97.1
[2024-09-25 05:28] VITALS: BP 124/71; PULSE 62
== END 2024-09-25 14:37 | disposition left against medical advice (07) | DRG 770 ==
LOC: YASAS 12:41 → Y3NR 15:38 → Y3W 09-23 13:00
PROVIDERS: ADMIT Psychiatry & Neurology Pain Medicine; ATTEND Psychiatry & Neurology Pain Medicine
PROC: HZ42ZZZ Group Counseling for Substance Abuse Treatment, Cognitive-Behavioral (ICD-10-PCS; principal; 2024-09-22)
DX: F10.20 Alcohol dependence, uncomplicated (principal); F17.210 Nicotine dependence, cigarettes, uncomplicated; F32.A Depression, unspecified; F41.9 Anxiety disorder, unspecified; I10 Essential (primary) hypertension; E11.9 Type 2 diabetes mellitus without complications; K21.9 Gastro-esophageal reflux disease without esophagitis
CPT/HCPCS: 80305; 80307; 82962; 87811

== ENCOUNTER 2024-10-05 18:57 | Emergency (ER) | payer OTHER ==
[2024-10-05 19:50] VITALS: BMI 21.9
[2024-10-05 20:26] LABS: ABSOLUTE IMMATURE GRANULOCYTES 0.01 x10^3/uL (0.0-0.031)
[2024-10-05 20:28] LABS: BASOPHILS # 0.05 x10^3/uL (0.01-0.08); EOSINOPHIL % 2.3 % (0.8-7.0); EOSINOPHILS # 0.13 x10^3/uL (0.04-0.54); HEMATOCRIT 37.1 % (40.1-51.0); HEMOGLOBIN 13.1 g/dL (13.7-17.5); MCHC 35.3 g/dl (32.3-36.5); MEAN CELL VOLUME 85.1 fl (79.0-92.2); MEAN PLT VOLUME 8.9 fl (9.4-12.4); MONOCYTE # 0.64 x10^3/uL (0.30-0.82); MONOCYTE % 11.2 % (5.3-12.2); PLATELET COUNT 198 x10^3/uL (163-337); RDW 13.6 % (12.2-16.1)
[2024-10-05 21:18] LABS: POTASSIUM 4.4 mmol/L (3.5-5.1)
[2024-10-05 21:21] LABS: CALCIUM 10.2 mg/dL (8.5-10.1)
[2024-10-05 21:22] LABS: BLOOD UREA NITROGEN 12.3 mg/dL (7-18)
[2024-10-05 21:27] LABS: BILIRUBIN,TOTAL 0.3 mg/dL (0.2-1); TOT PROT 7.6 g/dl (6.4-8.2)
[2024-10-05 22:39] VITALS: RESP 18
[2024-10-06 01:42] VITALS: BP 120/71; PULSE 79; TEMP 97.9
== END 2024-10-06 05:28 | disposition home or self-care (01) ==
LOC: JER 18:57
DX: M25.511 Pain in right shoulder (principal); M54.2 Cervicalgia; W01.198A Fall on same level from slipping, tripping and stumbling with subsequent striking against other object, initial encounter
CPT/HCPCS: 36415; 70450-TC; 71045-TC-FY; 72125-TC; 73030-TC-RT-FY; 80053; 84484; 85025; 93005; 93010; 99285-25

== ENCOUNTER 2024-10-06 06:03 | Inpatient (IN) | payer OTHER ==
[2024-10-06 06:11] VITALS: BMI 23.5
[2024-10-06] MEDS ORDERED: DICYCLOMINE HCL 10 MG CAPSULE PO PRN (07:15)
[2024-10-06] MEDS ORDERED: ONDANSETRON *ODT* 4 MG TABLET SL PRN (07:15)
[2024-10-06] MEDS ORDERED: MAG HYDROX/AL HYDROX/SIMETH 30 ML UNIT-DOSE CUP PO PRN (07:15)
[2024-10-06] MEDS ORDERED: BENZOCAINE/MENTHOL (CHLORASEPTIC ) LOZENGE MM PRN (07:15)
[2024-10-06] MEDS ORDERED: IBUPROFEN 600 MG TABLET (FP) PO PRN (07:15)
[2024-10-06] MEDS ORDERED: hydrOXYzine PAMOATE 25 MG CAPSULE (FP) PO PRN (07:15)
[2024-10-06] MEDS ORDERED: POLYETHYLENE GLYCOL (HEALTHYLAX) 3350 17 GM PACKET PO PRN (07:15)
[2024-10-06] MEDS ORDERED: MAGNESIUM HYDROX 2400MG/30ML ORAL SUSPENSION 30 ML CUP PO PRN (07:15)
[2024-10-06] MEDS ORDERED: BISMUTH SUBSALICYLATE 262 MG/15 ML BTL PO PRN (07:15)
[2024-10-06] MEDS ORDERED: ACETAMINOPHEN 325 MG TABLET (FP) PO PRN (07:15)
[2024-10-06] MEDS ORDERED: LOPERAMIDE HCL 2 MG CAPSULE PO PRN (07:15)
[2024-10-06] MEDS ORDERED: LORazepam 1 MG TABLET PO PRN (07:15)
[2024-10-06] MEDS ORDERED: NICOTINE POLACRILEX 2 MG GUM BUC PRN (07:15)
[2024-10-06] MEDS ORDERED: IBUPROFEN 400 MG TABLET (FP) PO PRN (07:15)
[2024-10-06] MEDS ORDERED: NALOXONE (NARCAN) HCL 4 MG/0.1 ML SPRAY NS PRN (07:15)
[2024-10-06] MEDS ORDERED: BENZONATATE 200 MG CAPSULE PO PRN (07:15)
[2024-10-06] MEDS ORDERED: guaiFENesin 600 MG TABLET.ER (FP) PO PRN (07:15)
[2024-10-06] MEDS: levETIRAcetam 500 MG TABLET (FP) PO ONE (07:52)
[2024-10-06] MEDS ORDERED: levETIRAcetam 500 MG TABLET (FP) PO SCH (10:00)
[2024-10-06] MEDS: PRENATAL VITAMINS W/ FOLIC ACID TABLET (FP) PO SCH (10:22)
[2024-10-06] MEDS: NICOTINE 7 MG/24 HOURS TOPICAL PATCH TD SCH (10:22)
[2024-10-06] MEDS: RAMIPRIL 5 MG CAPSULE PO SCH (10:22)
[2024-10-06] MEDS: LORazepam 2 MG TABLET PO SCH (10:23)
[2024-10-06] MEDS: INSULIN ASPART SLIDING SCALE (NOVOLOG) 1 VIAL SQ SCH (11:23)
[2024-10-06] MEDS: THIAMINE 100 MG TABLET PO SCH (22:10)
[2024-10-06] MEDS: levETIRAcetam 500 MG TABLET (FP) PO SCH (22:10)
[2024-10-06] MEDS: MELATONIN 5 MG TABLETS PO SCH (22:10)
[2024-10-07 11:28] LABS: HEMATOCRIT 37.8 % (40.1-51.0); HEMOGLOBIN 13.1 g/dL (13.7-17.5); MCHC 34.7 g/dl (32.3-36.5); MEAN CELL VOLUME 84.9 fl (79.0-92.2); MEAN PLT VOLUME 10.2 fl (9.4-12.4); PLATELET COUNT 183 x10^3/uL (163-337); RDW 13.9 % (12.2-16.1)
[2024-10-07 11:30] LABS: POTASSIUM 4.1 mmol/L (3.5-5.1)
[2024-10-07 11:35] LABS: BLOOD UREA NITROGEN 11.4 mg/dL (7-18)
[2024-10-07 11:38] LABS: CREATININE 0.8 mg/dL (0.55-1.3)
[2024-10-07 11:41] LABS: BILIRUBIN,TOTAL 0.4 mg/dL (0.2-1); TOT PROT 7.6 g/dl (6.4-8.2)
[2024-10-07] MEDS: LACTULOSE 20 GM/30 ML UDC (FOR ORAL USE ONLY) PO SCH (17:29)
[2024-10-08] MEDS: LORazepam 1 MG TABLET PO SCH (05:20)
[2024-10-08] MEDS: METHOCARBAMOL 500 MG TABLET PO PRN (22:25)
[2024-10-09] MEDS ORDERED: LORazepam 0.5 MG TABLET PO PRN
[2024-10-09] MEDS: LORazepam 0.5 MG TABLET PO SCH (05:40)
[2024-10-10] MEDS: LORazepam 0.5 MG TABLET PO ONE (05:37)
[2024-10-10 08:46] VITALS: BP 111/81; PULSE 65; RESP 19; TEMP 97.9
== END 2024-10-10 09:42 | disposition home or self-care (01) | DRG 775 ==
LOC: YASAS 06:03 → Y3N 07:44
PROVIDERS: ADMIT Allergy & Immunology; ATTEND Allergy & Immunology
PROC: HZ2ZZZZ Detoxification Services for Substance Abuse Treatment (ICD-10-PCS; principal; 2024-10-06)
DX: F10.230 Alcohol dependence with withdrawal, uncomplicated (principal); F17.210 Nicotine dependence, cigarettes, uncomplicated; E72.20 Disorder of urea cycle metabolism, unspecified; G40.909 Epilepsy, unspecified, not intractable, without status epilepticus; I10 Essential (primary) hypertension; E11.59 Type 2 diabetes mellitus with other circulatory complications; K21.9 Gastro-esophageal reflux disease without esophagitis; Z88.2 Allergy status to sulfonamides; Z88.8 Allergy status to other drugs, medicaments and biological substances
CPT/HCPCS: 36415; 70450-TC; 71045-TC-FY; 72125-TC; 73030-TC-RT-FY; 80053; 80177; 80305; 80307; 82140; 82962; 84484; 85025; 85027; 86593; 86780; 93005; 93010; 99285-25